=== PATIENT | male | born 1940 | race Caucasian/White ===

== ENCOUNTER 2017-11-09 10:31 | Emergency (ER) | payer MEDICARE, OTHER, SELFPAY ==
[2017-11-09 10:49] VITALS: BP 141/85; PULSE 69; RESP 24; O2SAT 98; BMI 26.5
--- NOTE | 2017-11-09 11:16 | ED.DIZZY ---
HPI - Dizziness General Chief Complaint: Dizziness Stated Complaint: Dizzy after taking new antiseizure med Time Seen by Provider: 11/09/17 10:43 Source: patient Mode of arrival: wheelchair Limitations: no limitations History of Present Illness HPI Narrative: Patient is a 77-year-old male who is approximately 3 days in to taking Topamax prescribed by his neurologist for concerns of seizures. Patient states that back in June there was a event after a surgery. Patient states that the that time there was concern for a stroke versus a seizure. He states that he has been ruled out for stroke and now the concern was that he had a seizure. He states that he has had 2 EEG since then that had abnormal waves he has been on several different seizure medicines and could not tolerate any of those medications. He did start Topamax 2 times a day a couple days ago. He states that he was at his normal state health this morning took his Topamax. He states that shortly afterwards he became lightheaded. Denied any vertigo. Denies any other symptoms. He states that he became very unsteady on his feet. He was at [facility] at the time. States that he was sitting at the time of the onset. Had to be helped outside because of the unsteadiness. At the time of my evaluation he feels like he has improved somewhat but was not back to baseline. Once again denies any other symptoms. 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 Related Data Home Medications Medication Instructions Recorded Confirmed topiramate 11/09/17 Allergies Allergy/AdvReac Type Severity Reaction Status Date / Time indomethacin [INDOMETHACIN] Allergy Severe COMA Unverified 11/09/17 12:00 diazepam [DIAZEPAM] Allergy Unknown HEART Unverified 08/20/17 12:08 FLUTTER Review of Systems Constitutional Denies chills, Denies fatigue, Denies fever(s), Denies headache(s), Denies lethargy, Denies malaise and Denies weakness Eyes Denies blurry vision, Denies diplopia, Denies irritation and Denies loss of vision ENT Ears, Nose, Mouth, and Throat: Denies dental pain, Denies vertigo, Reports dizziness, Denies facial pain, Denies headache(s), Denies lip swelling, Reports disequilibrium, Denies sinus pain, Denies sinus pressure, Denies sore throat and Denies throat swelling Cardiovascular Denies chest pain, Denies diaphoresis, Denies syncope, Denies rapid heart rate, Denies edema, Reports lightheadedness, Denies palpitations and Denies dyspnea Respiratory Denies cough, Denies dyspnea and Denies wheezing Gastrointestinal Gastrointestinal: Denies abdominal pain, Denies constipation, Denies diarrhea, Denies nausea and Denies vomiting Genitourinary Denies dysuria Musculoskeletal Reports abnormal gait, Denies myalgias, Denies arthralgias, Denies numbness and Denies tingling Integumentary/Breasts Denies lesions, Denies rash and Denies wounds Neurologic Denies abnormal movements, Denies abnormal speech, Reports abnormal gait, Denies behavioral changes, Denies burning sensations, Denies confusion, Denies vertigo, Reports dizziness, Denies syncope, Denies headache(s), Denies lack of coordination, Denies loss of vision, Denies memory loss, Denies numbness, Denies convulsions, Denies seizure-like activity, Denies sensory deficit, Denies tingling, Denies paresthesias, Reports disequilibrium and Denies weakness Psychiatric Denies behavioral changes, Denies confusion and Denies memory loss Endocrine Denies fatigue, Denies flushing and Denies palpitations Hematologic/Lymphatic Denies easy bleeding and Denies easy bruising Allergic/Immunologic Denies urticaria, Denies lip swelling, Denies throat swelling and Denies wheezing [facility] Social History Smoking Status: Never smoker Exam Initial Vital Signs Initial Vital Signs: Vital Signs Pulse Rate 69 11/09/17 10:49 Respiratory Rate 24 11/09/17 10:49 Blood Pressure 141/85 H 11/09/17 10:49 Pulse Oximetry 98 11/09/17 10:49 Const General: cooperative, healthy appearing, comfortable, well developed, well groomed and No acute distress Orientation: alert, awake and oriented x3 HENMT Head: normal to inspection, normocephalic and atraumatic Ears: hearing grossly normal bilaterally Nose: external nose normal Face and sinus: face asymmetric ( Slight droop to the left side of his mouth that resolves when he smiles) Mouth: oral mucosae normal Throat: uvula midline Eyes General: appearance normal, both eyes and all related structures Pupils: PERRL EOM: EOM intact bilaterally Chest Chest: normal inspection of the chest Resp Effort & Inspection: normal respiratory effort and able to speak in complete sentences Auscultation: clear to auscultation bilaterally Cardio Rate: regular rate Rhythm: regular rhythm Pulses: radial pulses present GI Inspection: normal to inspection, no edema and non-distended Palpation: soft, No firm and No tender Back/Spine/Pelvis Back: No CVA tenderness Skin General: no rashes or lesions noted, No jaundice and No petechiae Lesions: no lesions Rashes: no rashes Wounds: no wounds Neuro General: alert, awake, oriented x3 and CN's II-XI intact bilaterally Cranial Nerves: No CN's II-XI intact bilaterally ( patient with a slight droop of the left side of his mouth that is overcome was smiling otherwise cranial nerves intact), PERRL, EOM intact bilaterally, facial strength normal, tongue midline and hearing normal Cognition: normal cognition Speech: speech normal Gait: other ( patient able to stand without problems able to ambulate however does need some assistance because he feels unsteady.) Motor: muscle tone normal throughout Sensory Exam: no sensory deficits noted Extrem General: normal to inspection, capillary refill normal and normal exam except as noted Course Orders Ordered: ED Orders 11/09/17 11:19 CT head/brain wo con Stat 11/09/17 11:31 Complete Blood Count AUTO DIFF Stat Comprehensive Metabolic Panel Stat Partial Thromboplastin Time Stat Prothrombin Time INR Stat Vital Signs - 8 hr 11/09/17 10:49 11/09/17 11:26 11/09/17 12:01 Pulse Rate 69 82 72 Respiratory Rate 24 14 17 Blood Pressure 141/85 H Blood Pressure [Left Arm] 147/93 H 125/76 H Pulse Oximetry 98 96 96 11/09/17 12:35 Pulse Rate 76 Respiratory Rate 16 Blood Pressure Blood Pressure [Left Arm] 137/72 H Pulse Oximetry 97 MDM - Dizziness Lab Data Attestation: I reviewed the patient's lab results. Result diagrams: 11/09/17 11:31 11/09/17 11:31 Lab Results 11/09/17 11/09/17 11/09/17 Range/Units 11:31 11:31 11:31 WBC 4.8 (4.5-11.0) X10^3/uL RBC 5.37 (4.5-5.9) X10^6/uL Hgb 16.0 (13.5-17.5) g/dL Hct 47.6 (41-53) % MCV 88.6 (80-100) fL MCH 29.7 (26-34) PG MCHC 33.5 (30-36) % RDW 14.8 (11.6-14.8) % Plt Count 209 (150-400) X10^3/uL Neut % (Auto) 59.3 (50-75) % Lymph % (Auto) 21.3 L (25-40) % [place] % (Auto) 12.8 (3-14) % Eos % (Auto) 5.1 H (2-4) % Baso % (Auto) 1.5 (0-2) % Neut # (Auto) 2900 L (2387-0524) /uL PT 11.8 (10.1-12.7) SECONDS INR 1.1 (0.9-1.3) APTT 32 (26.4-36.2) SECONDS Sodium 144 (137-145) mmol/L Potassium 4.5 (3.4-5.1) mmol/L Chloride 105 (98-107) mmol/L Carbon Dioxide 27 (22-32) mmol/L BUN 21 H (9-20) mg/dL Creatinine 1.00 (0.66-1.25) mg/dL Estimated GFR > 60.0 (>60) mL/min BUN/Creatinine Ratio 21.0 (6-22) Glucose 90 (80-110) mg/dL Calcium 9.3 (8.4-10.2) mg/dL Total Bilirubin 0.8 (0.2-1.3) mg/dL AST 19 (17-59) IU/L ALT 24 (21-72) IU/L Alkaline Phosphatase 46 (38-126) U/L Total Protein 7.2 (6.3-8.2) g/dL Albumin 4.3 (3.5-5.0) g/dL Globulin 2.9 (1.7-4.1) g/dL Albumin/Globulin Ratio 1.5 (1.0-2.8) Imaging Data CT scan - head: Radiologist's impression: PROCEDURE: CT HEAD/BRAIN WO CON INDICATIONS: lightheadedness not on anticoagulation history of CVA TECHNIQUE: Noncontrast 4.5 mm thick angled axial sections acquired from the foramen magnum to the vertex, with coronal and sagittal reformats. For radiation dose reduction, the following was used: automated exposure control, adjustment of mA and/or kV according to patient size. COMPARISON: [facility], MR, BRAIN WITHOUT CONTRAST, 06/22/2007, 7:48. [facility], CT, HEAD WITHOUT CONTRAST, 03/10/2007, 9:09. [facility], MR, BRAIN W&WO CONTRAST, 07/29/2017, 16:30. FINDINGS: Image quality: Excellent. CSF spaces: Basal cisterns are patent. No extra-axial fluid collections. The ventricles are symmetric in size and shape. Brain: No intracranial bleeds or masses. There is cerebral volume loss for age, with resultant ventricular and sulcal prominence. There are periventricular and deep white matter chronic small vessel ischemic changes. There is intracranial internal carotid artery atherosclerosis. Skull and face: Calvarium and visualized facial bones appear intact, without suspicious lesions. Sinuses: Large mucus retention cyst noted in the left maxillary sinus. The mastoids are clear. IMPRESSION: No acute intracranial disease process. Dictated by: Thais Ca MD, PhD on 11/09/2017 at 12:06 ECG Data Attestation: I personally reviewed and interpreted this ECG as follows: Prior ECG tracings: not available for review Interpretation: Ectopic atrial rhythm ventricular rate is 68 normal axis normal QRS normal QTC No ST T wave changes MDM Narrative Medical decision making narrative: Patient's labs are unremarkable. Head CT is unremarkable. Has no objective neurologic findings. Patient did have some problems walking on his own secondary to feeling unsteady. Topamax does have the side effect of making somewhat unsteady. I do feel that this could very well be the cause of his symptoms. Also considered CVA. He does have a history of CVA in the past however in the setting of being on Topamax which can cause his symptoms, no objective neurologic findings will hold on further workup for now. I did have discussion with him and his was at bedside regarding this. The plan will be for him to go home. He does have a walker at home that he could use. He is going to stop the Topamax. He does understand that stopping this could cause him to potentially have seizures. He will call his neurologist on Friday to discuss the side effects he was having. He was given return precautions. If he does return to the emergency department would do a further workup for TIA/CVA. Patient expressed understanding and agreement with his plan. Discharge Plan Departure Patient Disposition: Home, Self-Care Clinical Impression: Lightheadedness Discharge Date/Time: 11/09/17 13:10 Interventions: ED Discharge Assessment Last Done: 11/09/17 13:01 Instructions: How to Prevent Falls Activity Restrictions/Additional Instructions: recommend that you stop the Topiramate and contact your neurologist on Friday to discuss further medication adjustments. If your symptoms worsen or you developed new symptoms you do need to return to the emergency department for further evaluation. Also recommend you contact her primary care doctor for a follow-up. Prescriptions: No Action topiramate 50 mg tablet RF: 0
--- NOTE | 2017-11-09 11:19 | DI.CT.S_ITS ---
PROCEDURE: CT HEAD/BRAIN WO CON INDICATIONS: lightheadedness not on anticoagulation history of CVA TECHNIQUE: Noncontrast 4.5 mm thick angled axial sections acquired from the foramen magnum to the vertex, with coronal and sagittal reformats. For radiation dose reduction, the following was used: automated exposure control, adjustment of mA and/or kV according to patient size. COMPARISON: [facility], MR, BRAIN WITHOUT CONTRAST, 06/22/2007, 7:48. [facility], CT, HEAD WITHOUT CONTRAST, 03/10/2007, 9:09. [facility], MR, BRAIN W&WO CONTRAST, 07/29/2017, 16:30. FINDINGS: Image quality: Excellent. CSF spaces: Basal cisterns are patent. No extra-axial fluid collections. The ventricles are symmetric in size and shape. Brain: No intracranial bleeds or masses. There is cerebral volume loss for age, with resultant ventricular and sulcal prominence. There are periventricular and deep white matter chronic small vessel ischemic changes. There is intracranial internal carotid artery atherosclerosis. Skull and face: Calvarium and visualized facial bones appear intact, without suspicious lesions. Sinuses: Large mucus retention cyst noted in the left maxillary sinus. The mastoids are clear. IMPRESSION: No acute intracranial disease process. Dictated by: Thais Ca MD, PhD on 11/09/2017 at 12:06 Approved by: Thais Ca MD, PhD on 11/09/2017 at 12:09
[2017-11-09 11:26] VITALS: BP 147/93; PULSE 82; RESP 14; O2SAT 96
[2017-11-09 11:59] LABS: Add Manual Diff / Slide Review NO; Basophils Percent Auto 1.5 % (0-2); Eosinophils Percent Auto 5.1 % (2-4); Hematocrit 47.6 % (41-53); Lymphocytes Percent Auto 21.3 % (25-40); Mean Corpuscular HGB Conc 33.5 % (30-36); Mean Corpuscular Hemoglobin 29.7 PG (26-34); Mean Corpuscular Volume 88.6 fL (80-100); Monocytes Percent Auto 12.8 % (3-14); Neutrophils Absolute Auto 2900 /uL (3000-5900); Neutrophils Percent Auto 59.3 % (50-75); Platelet Count 209 X10^3/uL (150-400); Red Blood Cell Count 5.37 X10^6/uL (4.5-5.9); Red Cell Distribution Width 14.8 % (11.6-14.8); White Blood Cell Count 4.8 X10^3/uL (4.5-11.0)
[2017-11-09 12:01] VITALS: BP 125/76; PULSE 72; RESP 17; O2SAT 96
[2017-11-09 12:02] LABS: INR 1.1 (0.9-1.3); Prothrombin Time 11.8 SECONDS (10.1-12.7)
[2017-11-09 12:05] LABS: PTT Partial Thromboplastin Tim 32 SECONDS (26.4-36.2)
[2017-11-09 12:07] LABS: Alanine Aminotransferase 24 IU/L (21-72); Albumin 4.3 g/dL (3.5-5.0); Albumin Globulin Ratio 1.5 (1.0-2.8); Alkaline Phosphatase 46 U/L (38-126); Aspartate Aminotransferase 19 IU/L (17-59); Bilirubin Total 0.8 mg/dL (0.2-1.3); Blood Urea Nitrogen 21 mg/dL (9-20); Calcium 9.3 mg/dL (8.4-10.2); Carbon Dioxide 27 mmol/L (22-32); Chloride 105 mmol/L (98-107); Estimated Glomerular Filt Rate > 60.0 mL/min (>60); Globulin 2.9 g/dL (1.7-4.1); Glucose 90 mg/dL (80-110); HEMOLYSIS 18 (0-50); Potassium 4.5 mmol/L (3.4-5.1); Sodium 144 mmol/L (137-145); Total Protein 7.2 g/dL (6.3-8.2)
[2017-11-09 12:35] VITALS: BP 137/72; PULSE 76; RESP 16; O2SAT 97
== END 2017-11-09 13:10 | disposition home or self-care (01) ==
PROVIDERS: Emergency Provider Emergency Medicine; Family Provider Internal Medicine; PCP Internal Medicine
DX: R42 Dizziness and giddiness (principal)
CPT/HCPCS: 36591; 70450; 80053; 85025; 85610; 85730; 93005; 99283; 99285

== ENCOUNTER → 2018-01-05 15:23 | Outpatient (CLI) | payer MEDICARE, OTHER, SELFPAY | PROVIDERS: Family Provider Internal Medicine; PCP Internal Medicine; Visit Provider Physician Assistant | DX: L03.031 Cellulitis of right toe (principal) | CPT/HCPCS: 87070; 87075; 87077; 87147; 87186; 87205 ==

== ENCOUNTER 2018-03-30 09:38 | Emergency (ER) | payer MEDICARE, OTHER, SELFPAY ==
[2018-03-30 09:54] VITALS: BP 151/80; PULSE 102; RESP 16; TEMP 36.2; O2SAT 98; BMI 27.9
[2018-03-30] MEDS: TRIMETH/SULFA 160/800 (DS) TABLET 1 TAB PO (12:30)
--- NOTE | 2018-03-30 12:30 | PC.NURSE ---
pt has injured nail but accidentally cutting skin when cutting the nail, then stubbed it. pt has been doing soaks 2-3 times a day. taken one coarse of antibiotics when it first happened. but getting worse again, last week dr mobley told him he may have to do more antibiotics.
--- NOTE | 2018-03-30 12:34 | ED_ITS ---
HPI - Extremity Injury (Lower) General Chief Complaint: Extremity Injury, Lower Stated Complaint: INFECTED RIGHT BIG TOE Time Seen by Provider: 03/30/18 11:03 Source: patient and family Mode of arrival: ambulatory Limitations: no limitations History of Present Illness HPI Narrative: Patient complains of redness and pain and swelling of his right great toe for the last 6 weeks, on and off. Patient states that he has seen his doctor for this previously and has had to have an I and D for paronychia him. Patient has curve toenails, and has recurrent issues with inflammation of his great toes. He states that he was seen by his doctor for this couple of weeks ago and told if things get worse, he may need to have an antibiotic. Patient has noticed progressive redness and swelling pain toe no drainage, except small amount of serosanguineous drainage the toenail. He states he has been doing salt water soaks. Patient states he is here because he can't get in to see his primary doctor today. Patient has never seen a finish inspector for this problem. He denies any trauma. He does not feel ill in any other way. Related Data Home Medications Medication Instructions Recorded Confirmed topiramate 11/09/17 01/21/18 carvedilol 25 mg PO BID 03/30/18 03/30/18 minoxidil 10 mg PO DAILY 03/30/18 03/30/18 rosuvastatin 20 mg PO DAILY 03/30/18 03/30/18 Previous Rx's Medication Instructions Recorded mupirocin 2 % topical ointment 1 applictn TOP TID #30 gram 01/21/18 sulfamethoxazole-trimethoprim 1 tab PO BID #14 tab 03/30/18 [Bactrim DS] Allergies Allergy/AdvReac Type Severity Reaction Status Date / Time indomethacin [INDOMETHACIN] Allergy Severe COMA Verified 03/30/18 09:54 diazepam [DIAZEPAM] Allergy Unknown HEART Verified 03/30/18 09:54 FLUTTER Review of Systems Review of Systems All systems reviewed & are unremarkable except as noted in HPI and below Constitutional Denies chills, Denies fever(s), Denies lethargy and Denies weakness Eyes Denies change in vision, Denies eye discharge, Denies irritation and Denies loss of vision ENT Ears, Nose, Mouth, and Throat: Denies change in voice, Denies neck pain and Denies sore throat Cardiovascular Denies chest pain, Denies irregular heart rhythm, Denies lightheadedness, Denies palpitations, Denies dyspnea, Denies dyspnea on exertion and Denies orthopnea Respiratory Denies cough, Denies dyspnea, Denies dyspnea on exertion and Denies wheezing Gastrointestinal Gastrointestinal: Denies abdominal pain, Denies change in bowel habits, Denies diarrhea, Denies nausea and Denies vomiting Genitourinary Denies hematuria, Denies flank pain, Denies urinary incontinence and Denies urinary urgency Musculoskeletal Denies neck pain Integumentary/Breasts Denies pruritus, Denies erythema, Denies rash and Denies wounds Neurologic Denies confusion, Denies loss of vision and Denies weakness Psychiatric Denies anxiety, Denies confusion, Denies depression, Denies homicidal ideation and Denies suicidal ideation Endocrine Denies palpitations Hematologic/Lymphatic Denies easy bruising Allergic/Immunologic Denies wheezing [facility] Medical History Paronychia (Acute) Cellulitis of great toe (Acute) Snoring (Chronic) Insomnia, persistent (Chronic) Obstructive sleep apnea of adult (Chronic) Surgical History No pertinent past surgical history (Acute) Social History Smoking Status: Never smoker Exam Initial Vital Signs Initial Vital Signs: Vital Signs Temperature 97.2 F L 03/30/18 09:54 Pulse Rate 102 H 03/30/18 09:54 Respiratory Rate 16 03/30/18 09:54 Blood Pressure 151/80 H 03/30/18 09:54 Pulse Oximetry 98 03/30/18 09:54 [facility] Head: normocephalic and atraumatic Ears: external ears normal and TM's normal bilaterally Nose: external nose normal and No nasal discharge Face and sinus: sinuses nontender, face symmetric, no sinus tenderness and No dry mucous membranes Mouth: oral mucosae normal and moist mucous membranes Teeth and gingiva: dentition normal Throat: tonsils normal and uvula midline Resp Effort & Inspection: normal respiratory effort, able to speak in complete sentences, no respiratory distress and no use of accessory muscles Cardio Pulses: dorsalis pedis present Skin Other: patient has erythema and mild edema of the distal half of his right great toe. A mild amount of dried, serosanguineous drainage is noted along the sides of the nail. There is no fluctuance. No induration. Toe is uniformly edematous and erythematous. No foreign body. No compromise of the nail. Patient has a markedly curved great toenail. Extrem Other: See description of toe above. Patient has full range of motion of his right great toe. Course Course Narrative: I discussed with the patient that at this time, I do not find evidence of apparent aching needs draining. At this point, I will put him on Bactrim, and have him follow up with Podiatry. The patient should continue his salt water soaks. We have discussed home management of the symptoms as well as the usual indications for return. Orders Ordered: Discontinued Medications Trimethoprim/Sulfamethoxazole (Bactrim Ds) 1 tab PO NOW ONE Stop: 03/30/18 12:27 Vital Signs - 8 hr 03/30/18 09:54 Temperature 97.2 F L Pulse Rate 102 H Respiratory Rate 16 Blood Pressure 151/80 H Pulse Oximetry 98 MDM - Extremity Injury (Lower) Medical Records Attestation: I reviewed the patient's medical records. Discharge Plan Departure Patient Disposition: Home Clinical Impression: Cellulitis of great toe Instructions: DI for Cellulitis -- Adult Prescriptions: New sulfamethoxazole-trimethoprim [Bactrim DS] 800-160 mg tablet 1 tab PO BID Qty: 14 RF: 0 No Action mupirocin 2 % ointment 1 applictn TOP TID Qty: 30 RF: 0 topiramate 50 mg tablet RF: 0 carvedilol 25 mg tablet 25 mg PO BID RF: 0 minoxidil 10 mg tablet 10 mg PO DAILY RF: 0 rosuvastatin 20 mg tablet 20 mg PO DAILY RF: 0 Referrals: Gerson Warren DPM [Non-Staff] - Rivera Kelly DPM [Non-Staff] - Coral Garsia DPM [Physician] - Valente Puente MD [Primary Care Provider] -
[2018-03-30 12:36] VITALS: BP 128/73; PULSE 67; RESP 14; O2SAT 95
== END 2018-03-30 12:39 | disposition home or self-care (01) ==
PROVIDERS: Emergency Provider Emergency Medicine; Family Provider Internal Medicine; PCP Internal Medicine
DX: L03.031 Cellulitis of right toe (principal)
CPT/HCPCS: 99282; 99283

== ENCOUNTER → 2020-01-13 19:46 | Outpatient (ROUT) | payer MEDICARE, OTHER, SELFPAY ==
[2020-01-13 20:22] LABS: Aspartate Aminotransferase 29 IU/L (17-59); BUN Creatinine Ratio 22.9 (6-22); Blood Urea Nitrogen 22 mg/dL (9-20); Calcium 9.2 mg/dL (8.4-10.2); Carbon Dioxide 28 mmol/L (22-32); Chloride 106 mmol/L (98-107); Cholesterol 109 mg/dL (140-199); Estimated Glomerular Filt Rate > 60.0 mL/min (>60); Glucose 102 mg/dL (80-110); HDL Cholesterol 39 mg/dL (40-60); HEMOLYSIS < 15 (0-50); LDL Cholesterol Calculated 56 mg/dL (<100); Potassium 4.5 mmol/L (3.4-5.1); Sodium 140 mmol/L (137-145); Triglycerides 71 mg/dL (35-150)
[2020-01-13 20:24] LABS: Hemoglobin A1C% w Est Avg Glu 5.7 % (4.0-6.0)
[2020-01-13 21:11] LABS: Vitamin B12 393 pg/mL (239-931)
== END ==
PROVIDERS: Family Provider Internal Medicine; PCP Internal Medicine; Visit Provider Internal Medicine
DX: I10 Essential (primary) hypertension (principal); E78.2 Mixed hyperlipidemia; R73.01 Impaired fasting glucose; E53.8 Deficiency of other specified B group vitamins
CPT/HCPCS: 80048; 80061; 82607; 83036; 84450

== ENCOUNTER → 2020-02-10 15:18 | Outpatient (CLI) | payer MEDICARE, OTHER, SELFPAY ==
--- NOTE | 2020-02-10 | DI.US.S_ITS ---
PROCEDURE: US PERIPH VENOUS LOW EXTREM RT INDICATIONS: SOFT TISSUE DISORDERS TECHNIQUE: Real-time imaging, as well as color and pulse Doppler interrogation, were performed of the lower extremity deep veins from the inguinal ligament to the popliteal fossa. COMPARISON: None. FINDINGS: The common femoral, femoral and popliteal veins are normally compressible, and free of intraluminal thrombus. Color and pulse Doppler demonstrate normal phasic intraluminal flow. There is normal augmentation response to distal compression maneuver. IMPRESSION: No deep venous thrombosis identified within the right lower extremity. Dictated by: Jeovanny Mariee [facility] Interpreted: Daniel Valdivia MD on 02/10/2020 at 16:03 Approved by: Daniel Valdivia M.D. on 02/10/2020 at 17:21
== END ==
PROVIDERS: Family Provider Internal Medicine; PCP Internal Medicine; Referring Provider Student in an Organized Health Care Education/Training Program; Visit Provider Student in an Organized Health Care Education/Training Program
DX: M79.89 Other specified soft tissue disorders (principal)
CPT/HCPCS: 93971

== ENCOUNTER 2020-08-31 19:04 | Emergency (ER) | payer MEDICARE, OTHER, SELFPAY ==
[2020-08-31 19:11] VITALS: BP 171/77; PULSE 70; RESP 20; O2SAT 96; BMI 27.1
--- NOTE | 2020-08-31 20:09 | ED_ITS ---
HPI - Back Pain/Injury General Chief Complaint: Back Pain/Injury Stated Complaint: Back Spasms Time Seen by Provider: 08/31/20 19:50 Source: patient and EMS Mode of arrival: EMS Limitations: no limitations History of Present Illness HPI Narrative: Patient is a 80-year-old male. He states he has had ?sciatica? in the past but states that it normally does not bother him all that much. Two days ago he was working out in the [email or web address] doing some [email or web address] work and shortly after started having what he describes as muscle spasms in his right lower back. He states this evening he sat down on the couch and then could not get up because of the discomfort in his back. He has been taking Tylenol and ibuprofen. Denies any urinary symptoms. No fevers. No specific trauma. No changes in bowel habits. Related Data Home Medications Medication Instructions Recorded Confirmed topiramate 11/09/17 02/24/20 carvedilol 25 mg PO BID 03/30/18 02/24/20 minoxidil 10 mg PO DAILY 03/30/18 02/24/20 rosuvastatin 20 mg PO DAILY 03/30/18 02/24/[address] [address] #1 ea 07/22/18 02/24/20 30 Previous Rx's Medication Instructions Recorded mupirocin 2 % topical ointment 1 applictn TOP TID #30 gram 01/21/18 sulfamethoxazole-trimethoprim 1 tab PO BID #14 tab 03/30/18 [Bactrim DS] cyclobenzaprine 10 mg PO TID PRN #14 tab 08/31/20 Allergies Allergy/AdvReac Type Severity Reaction Status Date / Time indomethacin [INDOMETHACIN] Allergy Severe COMA Verified 07/22/18 08:41 diazepam [DIAZEPAM] Allergy Unknown HEART Verified 07/22/18 08:41 FLUTTER Review of Systems Constitutional Constitutional: Denies fever(s) and Reports weakness Cardiovascular Cardiovascular: Denies chest pain and Denies dyspnea Respiratory Respiratory: Denies dyspnea Gastrointestinal Gastrointestinal: Denies abdominal pain Genitourinary Genitourinary: Denies dysuria, Denies urinary hesitancy, Denies urinary incontinence and Denies urinary urgency Genitourinary: Denies dysuria, Denies urinary incontinence, Denies urinary hesitancy and Denies urinary urgency Musculoskeletal Musculoskeletal: Reports back pain Integumentary/Breasts Skin/Breast: Denies rash Neurologic Neurologic: Reports weakness Hematologic/Lymphatic On Anticoagulants: No Allergic/Immunologic Allergic/Immunologic: Denies urticaria Patient History Medical History Cellulitis of great toe Insomnia, persistent Obstructive sleep apnea of adult Paronychia Snoring Surgical History No pertinent past surgical history Social History marital status: details: noemí Hoffmann, lives in [place] household members: spouse lives independently: Yes caregiver/support person: No housing: house Smoking Status: Never smoker Smoking Status: Never smoker alcohol intake frequency: a few times a week Substance Use Type: does not use Exam Initial Vital Signs Initial Vital Signs: Vital Signs Pulse Rate 70 08/31/20 19:11 Respiratory Rate 20 08/31/20 19:11 Blood Pressure 171/77 H 08/31/20 19:11 Pulse Oximetry 96 08/31/20 19:11 Const General: cooperative Limitations: mental status not altered HENWY Head: normal to inspection and normocephalic Resp Effort & Inspection: normal respiratory effort Cardio Rate: regular rate GI Inspection: non-distended Palpation: soft Back/Spine/Pelvis Back: No CVA tenderness Thoracic/Lumbar Spine: No thoracic spinal tenderness and No lumbar spinal tenderness Skin Lesions: no lesions Rashes: no rashes Neuro General: patient alert, patient awake and patient oriented x3 Cognition: normal cognition Speech: speech normal Extrem General: normal to inspection, capillary refill normal and No edema Other: Tenderness to palpation right hamstring Psych Appearance: grossly normal and well kempt Course Orders Ordered: Discontinued Medications Hydromorphone HCl (Hydromorphone 1 Mg Inj) 1 mg IM NOW ONE Stop: 08/31/20 20:10 Last Admin: 08/31/20 20:16 Dose: 1 mg Documented by: FELICITA Vital Signs Vital signs: Vital Signs - 8 hr 08/31/20 21:50 Pulse Rate 58 L Respiratory Rate 17 Blood Pressure 164/83 H Pulse Oximetry 94 MDM - Back Pain/Injury MDM Narrative Medical decision making narrative: There has been no specific trauma to cause his symptoms. I feel we can hold on radiologic studies. He does not have any fevers. No saddle anesthesia. No urinary symptoms. No change in bowel habits. He reports that his symptoms are more of a muscle spasm in his right leg. I have low suspicion for cauda equina. Initially thought he was having hamstring strain however upon further re-evaluation this is most likely him just tensing up because of the discomfort he was having. He did report some improvement with medications given here in the emergency department. He felt that after these medications he will be discharged home and maintain his pain level with ibuprofen which he has taken in the past. I discussed ibuprofen with him. He will take it with food. We discussed dosages. He can also take Tylenol. He did not want any muscle relaxers nor stronger pain medication which I am okay with. He was given return precautions and follow-up instructions. He expressed understanding and agreement. Discharge Plan Departure Patient Disposition: Home Clinical Impression: Acute leg pain Instructions: DI for Muscle Strain, DI for Back Pain With Sciatica Activity Restrictions/Additional Instructions: Continue to stay as active as possible. You can use the ice as needed. You can take 600 mg of ibuprofen 3 times a day with food. Contact your primary provider for follow-up. Return to the emergency department for any new or worsening symptoms Prescriptions: New cyclobenzaprine 10 mg tablet 10 mg PO TID PRN (Reason: muscle spasm) Qty: 14 RF: 0 No Action mupirocin 2 % ointment 1 applictn TOP TID Qty: 30 RF: 0 topiramate 50 mg tablet RF: 0 carvedilol 25 mg tablet 25 mg PO BID RF: 0 minoxidil 10 mg tablet 10 mg PO DAILY RF: 0 rosuvastatin 20 mg tablet 20 mg PO DAILY RF: 0 sulfamethoxazole-trimethoprim [Bactrim DS] 800-160 mg tablet 1 tab PO BID Qty: 14 RF: 0 (DME) Respiron[employer] Dreamstation BIPAP ST 30 Qty: 1 RF: 0 Referrals: Valente Puente MD [Primary Care Provider] -
[2020-08-31] MEDS: HYDROMORPHONE 1 MG INJ IM (20:16)
[2020-08-31 21:50] VITALS: BP 164/83; PULSE 58; RESP 17; O2SAT 94
== END 2020-08-31 21:50 | disposition home or self-care (01) ==
PROVIDERS: Emergency Provider Emergency Medicine; Family Provider Internal Medicine; PCP Internal Medicine
DX: M79.604 Pain in right leg (principal)
CPT/HCPCS: 96372; 99283; J1170

== ENCOUNTER → 2021-06-05 11:36 | Outpatient (CLI) | payer MEDICARE, OTHER, SELFPAY ==
[2021-06-05 13:09] LABS: Iron 117 ug/dL (49-181)
[2021-06-05 13:28] LABS: Free T4, Direct Thyroxine 1.02 ng/dL (0.78-2.19)
[2021-06-05 13:41] LABS: Thyroid Stimulating Hormone 2.83 uIU/mL (0.47-4.68)
[2021-06-05 14:06] LABS: Folate 12.1 ng/mL (2.76-20.0); Vitamin B12 757 pg/mL (239-931)
[2021-06-06 18:17] LABS: SS A Ro Sjogrens Antibody < 0.2 AI (0.0-0.9); SS B La Sjogrens Antibody < 0.2 AI (0.0-0.9)
[2021-06-06 21:03] LABS: Zinc 111 ug/dL (44-115)
== END ==
PROVIDERS: Family Provider Internal Medicine; PCP Internal Medicine; Referring Provider Dentist; Visit Provider Dentist
DX: K14.6 Glossodynia (principal); R68.2 Dry mouth, unspecified
CPT/HCPCS: 36415; 82607; 82746; 83540; 84439; 84443; 84630; 86235

== ENCOUNTER → 2022-02-14 07:56 | Outpatient (CLI) | payer MEDICARE, OTHER, SELFPAY ==
[2022-02-14 09:26] LABS: Hematocrit 45.4 % (41-53); Mean Corpuscular Volume 91.1 fL (80-100); Platelet Count 184 X10^3/uL (150-400); Red Blood Cell Count 4.99 X10^6/uL (4.5-5.9); Red Cell Distribution Width 15.5 % (11.6-14.8)
[2022-02-14 09:28] LABS: Hemoglobin A1C% w Est Avg Glu 5.2 % (4.0-6.0)
[2022-02-14 09:35] LABS: Alanine Aminotransferase 16 IU/L (<50); Albumin 3.8 g/dL (3.5-5.0); Albumin Globulin Ratio 1.3 (1.0-2.8); Alkaline Phosphatase 42 U/L (38-126); Aspartate Aminotransferase 22 IU/L (17-59); Bilirubin Total 1.1 mg/dL (0.2-1.3); Blood Urea Nitrogen 24 mg/dL (9-20); Calcium 8.8 mg/dL (8.4-10.2); Carbon Dioxide 30 mmol/L (22-32); Chloride 103 mmol/L (98-107); Cholesterol 112 mg/dL (140-199); Estimated Glomerular Filt Rate > 60 mL/min (>60); Globulin 2.9 g/dL (1.7-4.1); Glucose 91 mg/dL (80-110); HDL Cholesterol 44 mg/dL (40-60); HEMOLYSIS 21 (0-50); LDL Cholesterol Calculated 57 mg/dL (<100); Potassium 4.3 mmol/L (3.4-5.1); Sodium 140 mmol/L (137-145); Total Protein 6.7 g/dL (6.3-8.2); Triglycerides 57 mg/dL (35-150)
[2022-02-14 10:15] LABS: TSH w/ Reflex to FT4 5.61 uIU/mL (0.47-4.68)
[2022-02-14 10:40] LABS: Free T4, Direct Thyroxine 1.14 ng/dL (0.78-2.19)
== END ==
PROVIDERS: Family Provider Internal Medicine; PCP Internal Medicine; Referring Provider Internal Medicine; Visit Provider Internal Medicine
DX: E78.2 Mixed hyperlipidemia (principal); R73.01 Impaired fasting glucose; I10 Essential (primary) hypertension; I67.9 Cerebrovascular disease, unspecified
CPT/HCPCS: 36415; 80053; 80061; 83036; 84439; 84443; 85027

== ENCOUNTER 2022-12-12 13:05 | Inpatient (IN) | payer MEDICARE, OTHER, SELFPAY ==
[2022-12-12] VITALS (13 sets, daily range): BP systolic 129–165; BP diastolic 63–83; PULSE 57–69; RESP 14–24; TEMP 36.2–36.8; O2SAT 95–98; BMI 23.7
--- NOTE | 2022-12-12 | DI.MRI.S_ITS ---
PROCEDURE: MR HEAD/BRAIN WO CON INDICATIONS: L hand weakness TECHNIQUE: Non-contrast axial T1 spin echo, axial T2 fast spin echo, sagittal and axial FLAIR, coronal T2 fast spin echo, axial gradient echo, axial diffusion and ADC through the brain. COMPARISON: [facility], CT, CT ANGIO HEAD AND NECK, 12/12/2022, 13:29. [facility], CT, CT HEAD/BRAIN WO CON, 12/12/2022, 13:20. [facility], CT, CT HEAD/BRAIN WO CON, 11/09/2017, 11:29. [facility], MR, BRAIN WITHOUT CONTRAST, 06/22/2007, 7:48. FINDINGS: Image quality: Excellent. CSF spaces: Ventricles appear symmetric in size and shape. Basal cisterns are patent. 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 Brain: There is a focal infarction seen involving the right anterior thalamus, with increased diffusion-weighted signal and decreased T1 weighted signal. Mildly increased FLAIR signal can be seen at this site. No intracranial bleeds or mass effects. There is cerebral volume loss for age. There are periventricular and deep white matter chronic small vessel ischemic changes. Brainstem appears normal. No chronic ischemic insults. Normal intravascular flow voids are present. Skull and face: Calvarial bone marrow is normal in signal. Orbits are normal. Note is made of bilateral lens replacements. Sinuses: There is focal mucosal thickening involving the left maxillary sinus, which is near completely opacified. Milder mucosal thickening can be seen elsewhere within the paranasal sinuses. 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 Additional findings: Focal left maxillary sinus disease Dictated by: Klaus Nichols M.D. on 12/12/2022 at 18:30 Approved by: Klaus Nicohls M.D. on 12/12/2022 at 18:33
--- NOTE | 2022-12-12 13:12 | DI.CT.S_ITS ---
PROCEDURE: CT HEAD/BRAIN WO CON INDICATIONS: Facial droop TECHNIQUE: Noncontrast 4.5 mm thick angled axial sections acquired from the foramen magnum to the vertex, with coronal and sagittal reformats. For radiation dose reduction, the following was used: automated exposure control, adjustment of mA and/or kV according to patient size. COMPARISON: [facility], MR, BRAIN W&WO CONTRAST, 07/29/2017, 16:30. [facility], CT, CT HEAD/BRAIN WO CON, 11/09/2017, 11:29. FINDINGS: Image quality: Excellent. CSF spaces: Basal cisterns are patent. No extra-axial fluid collections. The ventricles are symmetric in size and shape. Brain: No intracranial bleeds or masses. There is cerebral volume loss for age, with resultant ventricular and sulcal prominence. There are periventricular and deep white matter chronic small vessel ischemic changes. There is intracranial internal carotid artery atherosclerosis. In this patient with a shell droop, scrutiny is given to the courses of the facial nerves, including within the visualized parotid glands. To the limits of this standard protocol noncontrast head CT, no abnormalities are seen along these regions. Skull and face: Calvarium and visualized facial bones appear intact, without suspicious lesions. Sinuses: Moderate mucosal thickening is partially seen within the left maxillary sinus. The paranasal sinuses are otherwise unremarkable. No abnormal fluid is seen within the mastoid air cells. IMPRESSION: No acute intracranial process is seen. If there is strong clinical suspicion for an acute stroke, please consider a brain MRI for further evaluation, as it is more sensitive (assuming that there is no contraindication to MRI). Focal left maxillary sinus again seen. Dictated by: Klaus Nichols M.D. on 12/12/2022 at 12:38 Approved by: Klaus Nichols M.D. on 12/12/2022 at 12:40
--- NOTE | 2022-12-12 13:21 | DI.CT.S_ITS ---
PROCEDURE: CT ANGIO HEAD AND NECK INDICATIONS: L sided facial droop TECHNIQUE: After the administration of intravenous contrast, 1 mm thick sections acquired from the aortic arch through the [place]. 3-dimensional txktwvo-tcgmhzotc-zhbhkngoso (MIP) and/or volume rendering reformats were acquired of the central intracranial vasculature and neck separately. For radiation dose reduction, the following was used: automated exposure control, adjustment of mA and/or kV according to patient size. COMPARISON: [facility], MR, ANGIOGRAM NECK WITH CONTRAST, 06/22/2007, 8:06. [facility], MR, BRAIN W&WO CONTRAST, 07/29/2017, 16:30. [facility], CT, CT HEAD/BRAIN WO CON, 11/09/2017, 11:29. [facility], CT, CT HEAD/BRAIN WO CON, 12/12/2022, 13:20. FINDINGS: Image quality: Diagnostic. BRAIN: CSF spaces: Ventricles are normal in size and shape. Basal cisterns are patent. No extra-axial fluid collections. Brain: No midline shift. No intracranial bleeds or masses. Muro-white matter interface appears intact. Skull and face: In this patient with this given history, scrutiny is given to the course of the left facial nerve, including within the parotid gland. The limits of this standard protocol CT study, no abnormality of the left facial nerve is detected. Calvarium and facial bones appear intact, without suspicious lesions. Orbits appear normal. Sinuses: Sinuses and mastoids are clear. HEAD CT ANGIOGRAPHY: Anterior circulation: Intracranial internal carotid arteries demonstrate generalized atherosclerotic irregularity, with up to 50% narrowing on each side. The flow within the paired anterior cerebral arteries is normal and symmetric. The flow within the middle cerebral arteries is normal and symmetric. The anterior communicating artery is seen. No aneurysms are seen. Posterior circulation: Visualized portions of the vertebral arteries demonstrate normal caliber, and join to form a normal appearing basilar artery. Asymmetric flow is seen within the posterior cerebral arteries, which is greatly reduced on the right beginning at the level of the P2 segment. No aneurysms are seen. NECK CT ANGIOGRAPHY: Carotid system: The great vessels demonstrate a conventional anatomy as they arise from the aortic arch. The origins of the common carotid arteries appear patent. The common carotid arteries demonstrate normal caliber and courses. The bifurcation regions demonstrate atherosclerotic irregularity and calcification, with approximately 50% narrowing involving origin of right internal carotid artery and no significant stenosis seen involving the left internal carotid artery. The more distal internal carotid arteries demonstrate normal course and caliber. Posterior circulation: There is focal calcification seen involving the origin of the left vertebral artery, with approximately 50% narrowing at this site. The origin of the right vertebral artery is within normal limits. The more superior extracranial portions of both vertebral arteries otherwise demonstrate normal courses and calibers. The left vertebral artery is dominant to the right. Soft tissues: Visualized neck soft tissues demonstrate no suspicious abnormalities. Bones: No suspicious bony lesions. Visualized cervical spine appears normally aligned. Relatively prominent cervical spine degenerative change can be seen. IMPRESSION: Greatly reduced flow seen within the right P2 segment. There is approximately 50% narrowing seen involving the origin of the left vertebral artery. Within the arteries of the neck, no additional hemodynamically significant stenosis can be seen. If there is strong clinical suspicion for an acute stroke, please consider a brain MRI for further evaluation, as it is more sensitive (assuming that there is no contraindication to MRI). Any quantitative measurements of stenosis were performed using NASCET criteria. Dictated by: Klaus Nichols M.D. on 12/12/2022 at 12:50 Approved by: Klaus Nichols M.D. on 12/12/2022 at 12:55
--- NOTE | 2022-12-12 13:22 | ED_ITS ---
HPI - General Adult General Chief complaint: Neuro Symptoms/Deficit Stated complaint: fell T-1/ droop on one side of face/sleepy Time Seen by Provider: 12/12/22 13:09 Source: patient Mode of arrival: Wheelchair Limitations: no limitations History of Present Illness HPI narrative: 82-year-old male who has had a stroke in the past. This was many years ago. Had a slight residual left-sided facial droop. Here for evaluation of fall that occurred overnight and coordination issues this morning and worsening left-sided facial droop. He states that he thinks he started to have some balance issues a couple days ago but admits that it has worsened overnight. He thinks that maybe it worsened when he woke up this morning but his states that it was overnight is when he fell. He denies any changes in his vision. No headache. He feels like he is more coordinated with his right arm and right leg with radhika red to the left. He denies chest pain or shortness of breath. No fevers. No abdominal pain. states that there has been no speech changes. No memory changes. Patient is not on anticoagulation. Related Data Home Medications Medication Instructions Recorded Confirmed mupirocin 2 % topical ointment 1 applic topical TID PRN 09/12/20 06/12/21 Previous Rx's Medication Instructions Recorded carvedilol 25 mg tablet 25 mg PO BID #180 tabs 02/13/22 minoxidil 10 mg tablet 10 mg PO DAILY #90 tabs 02/13/22 rosuvastatin 20 mg tablet See Rx Instructions .Route 02/13/22 .COMPLEX #90 tabs Allergies Allergy/AdvReac Type Severity Reaction Status Date / Time indomethacin [INDOMETHACIN] Allergy Severe COMA Verified 02/13/22 07:36 diazepam [DIAZEPAM] Allergy Unknown HEART Verified 02/13/22 07:36 FLUTTER amlodipine AdvReac Intermediate Verified 02/13/22 09:41 clonidine AdvReac Intermediate exercise Verified 02/13/22 09:41 intolerance colchicine AdvReac Intermediate neuropathy Verified 02/13/22 09:41 hydrochlorothiazide AdvReac Intermediate Verified 02/13/22 09:41 lisinopril AdvReac Intermediate Verified 02/13/22 09:41 olmesartan [From Benicar] AdvReac Intermediate Verified 02/13/22 09:41 pregabalin [From Lyrica] AdvReac Intermediate lethargy Verified 02/13/22 09:41 Review of Systems Review of Systems ROS Unobtainable: All systems reviewed & are unremarkable except as noted in HPI and below Patient History Medical History Cataracts, bilateral Cellulitis of great toe Cerebrovascular disease Do not resuscitate Esophageal ring Essential hypertension GERD without esophagitis Gout History of gout History of non anemic vitamin B12 deficiency Hypersomnia Impaired fasting glucose Insomnia, persistent Medicare annual wellness visit, initial Mixed hyperlipidemia Obstructive sleep apnea of adult Paronychia Peripheral neuropathy Snoring Stroke (~08/1969) Ulcer of esophagus due to gastroesophageal reflux disease with complication Surgical History Anesthesia History of abdominal surgery (~06/2015) History of cataract removal with insertion of prosthetic lens (~01/03/22) History of throat surgery (~06/2015) Family History Mother Cancer Congestive heart failure Brother History of blood clots Brother Suicide Grandfather Stomach disorder Grandmother History of heart disease Mental health problem Grandmother Stroke Social History marital status: details: noemí Hoffmann, lives in [place] household members: spouse lives independently: Yes caregiver/support person: No housing: house Smoking Status: Never smoker Smoking Status: Never smoker alcohol intake frequency: a few times a week Substance Use Type: does not use Exam Initial Vital Signs Initial Vital Signs: Vital Signs Temperature 98.3 F 12/12/22 13:06 Pulse Rate 67 12/12/22 13:06 Respiratory Rate 18 12/12/22 13:06 Blood Pressure 132/66 12/12/22 13:06 Pulse Oximetry 96 12/12/22 13:06 Oxygen Delivery Method Room Air 12/12/22 13:06 Const General: cooperative, comfortable and No ill appearing HENMT Head: normal to inspection and normocephalic Nose: external nose normal Resp Effort & Inspection: normal respiratory effort Auscultation: clear to auscultation bilaterally Cardio Rate: regular rate Rhythm: regular rhythm GI Inspection: normal to inspection and non-distended Palpation: soft and No tender Skin General: no rashes or lesions noted Neuro General: patient alert, patient awake, patient oriented x3 and moves all extremities Speech: speech normal Extrem Other: No gross deformities Scores GCS [place] coma scale eye opening: Spontaneous [place] coma scale verbal response: Orientated [place] coma scale motor response: Obey commands [place] coma scale total score: 15 NIH Stroke Scale Level of Conciousness: Alert, keenly responsive Ask month/age: Answers one question correctly, intubated follow commands Open/close eyes, close hand: Performs both tasks correctly Best gaze horizontal: Normal Visual telles: No visual loss Facial palsy: Partial paralysis, total or near total paralysis of lower face Left arm drift: No drift for full 10 sec Right arm drift: No drift for full 10 sec Left leg drift: Drifts down, not to bed Right leg drift: No drift for full 5 sec Limb ataxia: Absent Sensory on face/arms/legs: Mild to moderate sensory loss, can tell touch Best language: No aphasia, normal Dysarthria: Normal Extinction or inattention: No abnormality Total NIH Stroke scale score: 5 Course Orders Ordered: ED Orders 12/12/22 13:12 CT head/brain wo con Stat EKG-12 Lead Stat 12/12/22 13:18 Complete Blood Count AUTO DIFF Stat Comprehensive Metabolic Panel Stat Lipase Stat 12/12/22 13:21 CT angio head and neck Stat Discontinued Medications Aspirin (Aspirin Ec 325 Mg Tablet) 325 mg PO NOW ONE Stop: 12/12/22 14:24 Last Admin: 12/12/22 14:51 Dose: Not Given Documented By: JUAN MANUEL Aspirin (Aspirin 81 Mg Chew Tab) 243 mg PO NOW ONE Stop: 12/12/22 14:44 Last Admin: 12/12/22 14:50 Dose: 243 mg Documented By: JUAN MANUEL Vital Signs Vital signs: Vital Signs - 8 hr 12/12/22 13:06 12/12/22 13:10 12/12/22 13:12 Temperature 98.3 F Pulse Rate 67 69 67 Respiratory Rate 18 Blood Pressure 132/66 Pulse Oximetry 96 98 97 Oxygen Delivery Method Room Air Room Air 12/12/22 13:12 12/12/22 13:32 12/12/22 14:00 Temperature Pulse Rate 64 59 L Respiratory Rate 14 Blood Pressure 132/66 Pulse Oximetry 96 95 Oxygen Delivery Method Room Air 12/12/22 14:30 12/12/22 14:48 12/12/22 14:48 Temperature Pulse Rate 62 60 Respiratory Rate Blood Pressure 148/70 H Pulse Oximetry 96 95 Oxygen Delivery Method 12/12/22 15:00 12/12/22 15:00 Temperature Pulse Rate 64 Respiratory Rate 18 Blood Pressure 163/83 H Pulse Oximetry 97 Oxygen Delivery Method Room Air Medical Decision Making Medical Records Medical records reviewed: Yes I reviewed the patient's medical records. Lab Data Lab results reviewed: Yes I reviewed the patient's lab results. 12/12/22 13:18 12/12/22 13:18 Labs: Lab Results 12/12/22 12/12/22 Range/Units 13:18 13:18 WBC 4.7 (4.5-11.0) X10^3/uL RBC 4.85 (4.5-5.9) X10^6/uL Hgb 14.9 (13.5-17.5) g/dL Hct 44.5 (41-53) % MCV 91.7 (80-100) fL MCH 30.6 (26-34) PG MCHC 33.4 (30-36) % RDW 14.3 (11.6-14.8) % Plt Count 177 (150-400) X10^3/uL Neut % (Auto) 59.8 (50-75) % Lymph % (Auto) 22.4 L (25-40) % [place] % (Auto) 11.4 (3-14) % Eos % (Auto) 5.2 H (2-4) % Baso % (Auto) 1.2 (0-2) % Neut # (Auto) 2800 (1001-1429) /uL Lymph # (Auto) 1100 (9133-0205) /uL [place] # (Auto) 500 (0-900) /uL Eos # (Auto) 200 (0-450) /uL Baso # (Auto) 100 (0-100) /uL Sodium 139 (137-145) mmol/L Potassium 4.5 (3.4-5.1) mmol/L Chloride 103 (98-107) mmol/L Carbon Dioxide 32 (22-32) mmol/L BUN 20 (9-20) mg/dL Creatinine 0.99 (0.66-1.25) mg/dL Estimated GFR > 60 (>60) mL/min BUN/Creatinine Ratio 20.2 (6-22) Glucose 92 (80-110) mg/dL Calcium 8.8 (8.4-10.2) mg/dL Total Bilirubin 0.7 (0.2-1.3) mg/dL AST 23 (17-59) IU/L ALT 17 (<50) IU/L Alkaline Phosphatase 36 L (38-126) U/L Total Protein 6.8 (6.3-8.2) g/dL Albumin 4.0 (3.5-5.0) g/dL Globulin 2.8 (1.7-4.1) g/dL Albumin/Globulin Ratio 1.4 (1.0-2.8) Lipase 108 (23-300) U/L Imaging Data CT scan - head: Radiologist's Impression: PROCEDURE:? CT HEAD/BRAIN WO CON ? INDICATIONS:? Facial droop ? TECHNIQUE:? Noncontrast 4.5 mm thick angled axial sections acquired from the foramen magnum to the vertex, with coronal and sagittal reformats.? For radiation dose reduction, the following was used:? automated exposure control, adjustment of mA and/or kV according to patient size.? ? COMPARISON:? [facility], MR, BRAIN W&WO CONTRAST, 07/29/2017, 16:30.? [facility], CT, CT HEAD/BRAIN WO CON, 11/09/2017, 11:29. ? FINDINGS:? Image quality:? Excellent.? ? CSF spaces:? Basal cisterns are patent.? No extra-axial fluid collections.? The ventricles are symmetric in size and shape.? ? Brain:? No intracranial bleeds or masses.? There is cerebral volume loss for age, with resultant ventricular and sulcal prominence.? There are periventricular and deep white matter chronic small vessel ischemic changes.? There is intracranial internal carotid artery atherosclerosis.? ? In this patient with a shell droop, scrutiny is given to the courses of the facial nerves, including within the visualized parotid glands.? To the limits of this standard protocol noncontrast head CT, no abnormalities are seen along these regions. ? Skull and face:? Calvarium and visualized facial bones appear intact, without suspicious lesions.? ? Sinuses:? Moderate mucosal thickening is partially seen within the left maxillary sinus.? The paranasal sinuses are otherwise unremarkable. No abnormal fluid is seen within the mastoid air cells. ? IMPRESSION:? ? No acute intracranial process is seen.? ? If there is strong clinical suspicion for an acute stroke, please consider a brain MRI for further evaluation, as it is more sensitive (assuming that there is no contraindication to MRI). ? Focal left maxillary sinus again seen. CTA - brain/neck: Radiologist's Impression: PROCEDURE:? CT ANGIO HEAD AND NECK ? INDICATIONS:? L sided facial droop ? TECHNIQUE:? After the administration of intravenous contrast, 1 mm thick sections acquired from the aortic arch through the [place].? 3-dimensional xdmwlmb-yhumkekuq-cxcqmxrjea (MIP) and/or volume rendering reformats were acquired of the central intracranial vasculature and neck separately. For radiation dose reduction, the following was used:? automated exposure control, adjustment of mA and/or kV according to patient size.? ? COMPARISON:? [facility], MR, ANGIOGRAM NECK WITH CONTRAST, 06/22/2007, 8 :06.? [facility], MR, BRAIN W&WO CONTRAST, 07/29/2017, 16:30.? [facility], CT, CT HEAD/BRAIN WO CON, 11/09/2017, 11:29.? [facility], CT, CT HEAD/BRAIN WO CON, 12/12/2022, 13:20. ? FINDINGS:? Image quality:? Diagnostic.? ? BRAIN:? CSF spaces:? Ventricles are normal in size and shape.? Basal cisterns are patent.? No extra-axial fluid collections.? ? Brain:? No midline shift.? No intracranial bleeds or masses.? Muro-white matter interface appears intact.? ? Skull and face:? In this patient with this given history, scrutiny is given to the course of the left facial nerve, including within the parotid gland.? The limits of this standard protocol CT study, no abnormality of the left facial nerve is detected.? Calvarium and facial bones appear intact, without suspicious lesions.? Orbits appear normal.? ? Sinuses:? Sinuses and mastoids are clear.? ? HEAD CT ANGIOGRAPHY:? Anterior circulation:? Intracranial internal carotid arteries demonstrate generalized atherosclerotic irregularity, with up to 50% narrowing on each side.? The flow within the paired anterior cerebral arteries is normal and symmetric.? The flow within the middle cerebral arteries is normal and symmetric.? The anterior communicating artery is seen.? No aneurysms are seen.? ? Posterior circulation:? Visualized portions of the vertebral arteries demonstrate normal caliber, and join to form a normal appearing basilar artery.? Asymmetric flow is seen within the posterior cerebral arteries, which is greatly reduced on the right beginning at the level of the P2 segment.? No aneurysms are seen.? ? NECK CT ANGIOGRAPHY:? Carotid system:? The great vessels demonstrate a conventional anatomy as they arise from the aortic arch.? The origins of the common carotid arteries appear patent.? The common carotid arteries demonstrate normal caliber and courses.? The bifurcation regions demonstrate atherosclerotic irregularity and calcification, with approximately 50% narrowing involving origin of right internal carotid artery and no significant stenosis seen involving the left internal carotid artery. The more distal internal carotid arteries demonstrate normal course and caliber.? ? Posterior circulation:? There is focal calcification seen involving the origin of the left vertebral artery, with approximately 50% narrowing at this site.? The origin of the right vertebral artery is within normal limits.? The more superior extracranial portions of both vertebral arteries otherwise demonstrate normal courses and calibers.? The left vertebral artery is dominant to the right.? ? Soft tissues:? Visualized neck soft tissues demonstrate no suspicious abnormalities.? ? Bones:? No suspicious bony lesions.? Visualized cervical spine appears normally aligned.? Relatively prominent cervical spine degenerative change can be seen. ? ? IMPRESSION:? Greatly reduced flow seen within the right P2 segment. ? There is approximately 50% narrowing seen involving the origin of the left vertebral artery. ? Within the arteries of the neck, no additional hemodynamically significant stenosis can be seen. ? ? If there is strong clinical suspicion for an acute stroke, please consider a brain MRI for further evaluation, as it is more sensitive (assuming that there is no contraindication to MRI). ECG Data Attestation: I personally reviewed and interpreted this ECG as follows: Interpretation: Sinus rhythm Ventricular rate is 66 Normal axis Normal QRS Normal QTC No ST T wave changes MDM Narrative Medical decision making narrative: Workup here in the emergency department is very concerning for a CVA. Initial NIH scale was 5. His symptoms potentially started a couple days ago when he stated that he was having balance issues. I did discuss the case with stroke Neurology at the [facility]. They recommended no tPA. No emerge nt intervention. Recommended admission to the hospital. Dual antiplatelet. MRI, echocardiogram. I did discuss this with the patient. I then discussed the case with Dr. Mayen hospitalist who will admit for further evaluation and treatment. Discharge Plan Departure Patient Disposition: Admitted As Inpatient Clinical Impression: CVA (cerebral vascular accident) Admit Date/Time: 12/12/22 15:28 Admit Provider: Gray Mayen
[2022-12-12 13:28] LABS: Add Manual Diff / Slide Review NO; Basophils Absolute Auto 100 /uL (0-100); Basophils Percent Auto 1.2 % (0-2); Eosinophils Absolute Auto 200 /uL (0-450); Eosinophils Percent Auto 5.2 % (2-4); Hematocrit 44.5 % (41-53); Hemoglobin 14.9 g/dL (13.5-17.5); Lymphocytes Absolute Auto 1100 /uL (1100-4500); Lymphocytes Percent Auto 22.4 % (25-40); Mean Corpuscular HGB Conc 33.4 % (30-36); Mean Corpuscular Hemoglobin 30.6 PG (26-34); Mean Corpuscular Volume 91.7 fL (80-100); Monocytes Absolute Auto 500 /uL (0-900); Monocytes Percent Auto 11.4 % (3-14); Neutrophils Absolute Auto 2800 /uL (1500-7000); Neutrophils Percent Auto 59.8 % (50-75); Platelet Count 177 X10^3/uL (150-400); Red Blood Cell Count 4.85 X10^6/uL (4.5-5.9); Red Cell Distribution Width 14.3 % (11.6-14.8); White Blood Cell Count 4.7 X10^3/uL (4.5-11.0)
[2022-12-12 13:44] LABS: Alanine Aminotransferase 17 IU/L (<50); Albumin Globulin Ratio 1.4 (1.0-2.8); Alkaline Phosphatase 36 U/L (38-126); Aspartate Aminotransferase 23 IU/L (17-59); BUN Creatinine Ratio 20.2 (6-22); Bilirubin Total 0.7 mg/dL (0.2-1.3); Blood Urea Nitrogen 20 mg/dL (9-20); Calcium 8.8 mg/dL (8.4-10.2); Carbon Dioxide 32 mmol/L (22-32); Chloride 103 mmol/L (98-107); Estimated Glomerular Filt Rate > 60 mL/min (>60); Globulin 2.8 g/dL (1.7-4.1); Glucose 92 mg/dL (80-110); HEMOLYSIS < 15 (0-50); Lipase 108 U/L (23-300); Potassium 4.5 mmol/L (3.4-5.1); Sodium 139 mmol/L (137-145); Total Protein 6.8 g/dL (6.3-8.2)
--- NOTE | 2022-12-12 13:54 | PC.NURSE ---
Addendum entered by Elian Carpenter R.N. 12/12/22 14:26: I clarrified with patient's spouse: patient has had L side facial droop since his stroke 8-10 years ago, but she believes the pt's left side of face appears to have increased droop this morning. Original Note: Pt states his left side feels weaker today. Baseline L side facial droop which is unchanged today per spouse.
[2022-12-12] MEDS: ASPIRIN 81 MG CHEW TAB 243 MG PO (14:50)
--- NOTE | 2022-12-12 17:13 | PM.HP.1 ---
History of Present Illness History of Present Illness Date Patient Seen: 12/12/22 Time Patient Seen: 17:13 Chief complaint: fell T-1/ droop on one side of face/sleepy Narrative: This is an 82 year old male with PMH of prior CVA, HTN, YASIR, prior partial seizure (not on antiepileptics due to presumed provoked due to GI procedure per documentation) who presented to the emergency room with left sided weakness and facial droop when he awoke this morning. Patient states over the past few weeks he has actually noticed some balance issues and difficulty ambulating, with some dry mouth as well. He denies chest pain, shortness of breath, palpitations, leg edema, fever, chills. This morning he woke up with difficulty moving his left hand, and some left hand numbness, and left sided facial droop. This improved after about 45 minutes per the patient, and now only has facial droop on the left. In the emergency room, initial NIH was 5, given unclear last known normal he was not a TPA or interventional candidate. Telestroke service did recommend DAPT. He has no history of afib. CT imaging showed no hemorrhage, with CTA showing reduced P2 flow, not consitent with his current symptomatology. He was admitted for presumed stroke, MRI has been ordered. [facility] Medical History Cataracts, bilateral Cellulitis of great toe Cerebrovascular disease Do not resuscitate Esophageal ring Essential hypertension GERD without esophagitis Gout History of gout History of non anemic vitamin B12 deficiency Hypersomnia Impaired fasting glucose Insomnia, persistent Medicare annual wellness visit, initial Mixed hyperlipidemia Obstructive sleep apnea of adult Paronychia Peripheral neuropathy Snoring Stroke (~08/1969) Ulcer of esophagus due to gastroesophageal reflux disease with complication Surgical History Anesthesia History of abdominal surgery (~06/2015) History of cataract removal with insertion of prosthetic lens (~01/03/22) History of throat surgery (~06/2015) Family History Mother Cancer Congestive heart failure Brother History of blood clots Brother Suicide Grandfather Stomach disorder Grandmother History of heart disease Mental health problem Grandmother Stroke Social History marital status: details: noemí Hoffmann, lives in [place] household members: spouse lives independently: Yes caregiver/support person: No housing: house Smoking Status: Never smoker alcohol intake: current Meds Home Medications and Allergies Home Medications Medication Instructions Recorded Confirmed Type carvedilol 25 mg tablet 25 mg PO BID #180 tabs 02/13/22 12/12/22 Rx minoxidil 10 mg tablet 10 mg PO DAILY #90 tabs 02/13/22 12/12/22 Rx rosuvastatin 20 mg tablet See Rx Instructions .Route 02/13/22 12/12/22 Rx .COMPLEX #90 tabs Allergies Allergy/AdvReac Type Severity Reaction Status Date / Time indomethacin [INDOMETHACIN] Allergy Severe COMA Verified 02/13/22 07:36 diazepam [DIAZEPAM] Allergy Unknown HEART Verified 02/13/22 07:36 FLUTTER amlodipine AdvReac Intermediate Verified 02/13/22 09:41 clonidine AdvReac Intermediate exercise Verified 02/13/22 09:41 intolerance colchicine AdvReac Intermediate neuropathy Verified 02/13/22 09:41 hydrochlorothiazide AdvReac Intermediate Verified 02/13/22 09:41 lisinopril AdvReac Intermediate Verified 02/13/22 09:41 olmesartan [From Benicar] AdvReac Intermediate Verified 02/13/22 09:41 pregabalin [From Lyrica] AdvReac Intermediate lethargy Verified 02/13/22 09:41 Review of Systems Review of Systems Narrative: All other systems reviewed with the patient and are negative unless otherwise stated. Exam Vital Signs (past 8 hours): - 12/12/22 13:06 12/12/22 13:10 12/12/22 13:12 Temperature 98.3 F Pulse Rate 67 69 67 Respiratory Rate 18 Blood Pressure 132/66 Pulse Oximetry 96 98 97 Oxygen Delivery Method Room Air Room Air Oxygen Flow Rate 12/12/22 13:12 12/12/22 13:32 12/12/22 14:00 Temperature Pulse Rate 64 59 L Respiratory Rate 14 Blood Pressure 132/66 Pulse Oximetry 96 95 Oxygen Delivery Method Room Air Oxygen Flow Rate 12/12/22 14:30 12/12/22 14:48 12/12/22 14:48 Temperature Pulse Rate 62 60 Respiratory Rate Blood Pressure 148/70 H Pulse Oximetry 96 95 Oxygen Delivery Method Oxygen Flow Rate 12/12/22 15:00 12/12/22 15:00 12/12/22 15:30 Temperature Pulse Rate 64 Respiratory Rate 18 Blood Pressure 163/83 H 153/76 H Pulse Oximetry 97 Oxygen Delivery Method Room Air Oxygen Flow Rate 12/12/22 15:30 12/12/22 16:00 12/12/22 16:00 Temperature Pulse Rate 64 61 Respiratory Rate 24 15 Blood Pressure 129/63 Pulse Oximetry 97 96 Oxygen Delivery Method Room Air Room Air Oxygen Flow Rate 12/12/22 16:40 Temperature 97.4 F L Pulse Rate 60 Respiratory Rate 18 Blood Pressure 140/77 Pulse Oximetry 96 Oxygen Delivery Method Oxygen Flow Rate 0 Oxygen Delivery Method Room Air Oxygen Flow Rate 0 Narrative Exam Narrative: General:? Patient is well developed and well nourished, in no distress at this time. HEENT:? Normocephalic, atraumatic, extraocular muscles intact, oral pharynx is clear and mucous membranes are moist. Neck: supple and symmetric, trachea is midline, no cervical adenopathy. Negative for JVD Chest:? Normal AP diameter and contour without kyphoscoliosis, no tachypnea, equal chest rise bilaterally. Lungs:? CTA b/l no wheezing rhonchi or rales. Cardio:?RRR no m/r/g. Abdomen: S NT ND. Musculoskeletal:? Muscle strength and tone are equal within normal limits, no deformity. Extremities: No edema or joint effusions. No cyanosis or clubbing. Skin:? Pale,? Warm to touch,dry and intact without rashes, ulcerations or petechiae.? Neuro:? Alert and orientated x3,? sensation to touch intact in all extremities to light touch, left facial droop, please see NIH of 1 noted below. Psych:? Patient has a well-kept appearance, appropriate affect, mental status attitude thought context and judgment are appropriate for age. Objective ECG Impression: NSR with no acute ischemia as interpreted by me. Labs 12/12/22 13:18 12/12/22 13:18 Labs: Laboratory Results - last 24 hr 12/12/22 12/12/22 13:18 13:18 WBC 4.7 RBC 4.85 Hgb 14.9 Hct 44.5 MCV 91.7 MCH 30.6 MCHC 33.4 RDW 14.3 Plt Count 177 Neut % (Auto) 59.8 Lymph % (Auto) 22.4 L Union % (Auto) 11.4 Eos % (Auto) 5.2 H Baso % (Auto) 1.2 Neut # (Auto) 2800 Lymph # (Auto) 1100 Union # (Auto) 500 Eos # (Auto) 200 Baso # (Auto) 100 Sodium 139 Potassium 4.5 Chloride 103 Carbon Dioxide 32 BUN 20 Creatinine 0.99 Estimated GFR > 60 BUN/Creatinine Ratio 20.2 Glucose 92 Calcium 8.8 Total Bilirubin 0.7 AST 23 ALT 17 Alkaline Phosphatase 36 L Total Protein 6.8 Albumin 4.0 Globulin 2.8 Albumin/Globulin Ratio 1.4 Lipase 108 Assessment & Plan Assessment & Plan narrative: 1. Acute CVA - NIH 5 improving to 1 after arrival to the floor. - asa 81 mg daily for life and plavix 75 mg for 21 days. - substitute formulary atorvastatin 80 mg for rosuvastatin 20. - telemetry monitoring for afib. - differential does include seizure, though no evdience thus far - MRI ordered - TTE ordered - PT/OT ordered, consider speech though no current difficulties despite facial droop. 2. Essential HTN - continue home coreg 3. History of prior seizure - not on antiepileptics 4. YASIR - continue home CPAP if able Code: discussed code status with patient, he has an advanced directive stating DNR, however in discussion with him if he can be resuscitated to his current state he would want us to do inteventions to accomplish that. This is consistent with Full code. He does not wish to be on prolonged life support nor would he want feeding tube. Surrogate is patient's spouse I have utilized all available immediate resources to obtain, update, or review the patient's current medications. Dispo: admitted as inpatient as his stay is expected to exceed two midnights with ongoing neurological deficits. Likely discharge home at this time. Further history obtained via discussion with ER provider and review of scanned documentation. I have reviewed patient's imaging, labs, and EKG personally. Discussed plan of care with patient. Scores NIHSS Level of Conciousness: Alert, keenly responsive Ask month/age: Answers both questions correctly. Open/close eyes, close hand: Performs both tasks correctly Best gaze horizontal: Normal Visual telles: No visual loss Facial palsy: Minor paralysis, flattened nasolabial fold, asymmetry on smiling Left arm drift: No drift for full 10 sec Right arm drift: No drift for full 10 sec Left leg drift: No drift for full 5 sec Right leg drift: No drift for full 5 sec Limb ataxia: Absent Sensory on face/arms/legs: Normal, no sensory loss Best language: No aphasia, normal Dysarthria: Normal Extinction or inattention: No abnormality Total NIH Stroke scale score: 1 Quality VTE Deep Vein Thrombosis/Pulmonary Embolism Present on Admission: No MIPS - Admit I confirm the patient?s Advance Care Plan is present, Code status is documented, Surrogate decision maker is in patient?s record [If Yes, STOP here]: Yes
--- NOTE | 2022-12-12 17:30 | DI.ECHO.S_ITS ---
[facility]---------+ [facility] +---------+ : : [address] : : : : [id number] : : : : Phone: [phone]+ Echocardiogram Report + + :Name: EZEQUIEL TERRAZAS Study Date: 12/13/2022 Height: 71 in : :[facility] ReadingLocation: Weight: 170 lb : : Gender: Male BSA: 2.0 m2 : :: 1940 Age: 82 yrs BP: 140/77 mmHg: :Reason For Study: CVA : :Ordering Physician: MICHAELA, : :MARK OCAMPO Performed By: Cathy Qureshi : :Referring: MARK JENNINGS : + + Interpretation Summary The ejection fraction is estimated to be 55-60%. There are no obvious focal wall motion abnormalities noted but poor endocardial definition reduces the sensitivity for the detection of such. There is mild aortic regurgitation. The ascending aorta is mildly enlarged. There is no Doppler evidence for an interatrial shunt. Procedure: A two-dimensional transthoracic echocardiogram with color flow and Doppler was performed. The study quality was technically adequate. There is no prior echocardiogram noted for this patient. The patient was in a bradycardic rhythm during the exam. Left Ventricle: The left ventricle is normal in size. The ejection fraction is estimated to be 55-60%. There are no obvious focal wall motion abnormalities noted but poor endocardial definition reduces the sensitivity for the detection of such. Diastolic parameters suggest a relaxation abnormality of the left ventricle, consistent with probable normal filling pressures. Right Ventricle: The right ventricle is mildly dilated. The right ventricular systolic function is normal. Atria: The left atrial size is normal. Right atrial size is normal. There is no Doppler evidence for an interatrial shunt. Mitral Valve: The mitral valve is normal. There is no mitral valve stenosis. There is trace mitral regurgitation. Aortic Valve: The aortic valve is trileaflet. The aortic valve opens well. There is no aortic valve stenosis. There is mild aortic regurgitation. Tricuspid Valve: The tricuspid valve leaflets are thin and pliable. There is no tricuspid stenosis. There is trace tricuspid regurgitation. Pulmonic Valve: The pulmonic valve is not well visualized. There is no pulmonic valvular stenosis. There is no pulmonic valvular regurgitation. Great Vessels: The aortic root is mildly dilated. The ascending aorta is mildly enlarged. The pulmonary artery is normal size. The inferior vena cava was not well visualized. Pericardium/ Pleura There is no pericardial effusion. MMode/2D Measurements & Calculations LVIDd: 5.1 cm LVOT diam: 2.1 cm LVIDs: 3.9 cm Ao root diam: 4.1 cm FS: 23.5 % asc Aorta Diam: 4.0 cm IVSd: 0.80 cm LVPWd: 0.80 cm LV leung. diameter/BSA (cm/m^2): 2.6 LV sys. diameter/BSA (cm/m^2): 2.0 LA A2 area: 21.6 cm2 RA long axis: 4.9 cm LA A4 area: 15.1 cm2 RA area: 13.3 cm2 LA length (vol): 5.8 cm RA vol: 30.8 ml LA vol: 48.1 ml RA : 15.6 ml/m2 LA vol index: 24.4 ml/m2 RVD1 (basal): 4.3 cm LVLs ap4: 6.2 cm LVLd ap2: 7.4 cm TAPSE_phl: 2.3 cm LVLs ap2: 6.0 cm Doppler Measurements & Calculations Ao V2 max: 123.0 cm/sec LVOT Max Amilcar: 98.7 cm/sec Ao V2 mean: 87.1 cm/sec LV V1 max P.9 mmHg Ao max P.0 mmHg LV V1 VTI: 25.9 cm Ao mean P.0 mmHg JONAH(I,D): 2.6 cm2 Ao V2 VTI: 34.9 cm JONAH(V,D): 2.8 cm2 sev ratio: 0.74 JONAH indexed to BSA (cm^2/m^2): 1.3 MV E max amilcar: 76.8 cm/sec TR max amilcar: 231.5 cm/sec MV A max amilcar: 53.8 cm/sec TR max P.5 mmHg MV E/A: 1.4 PA V2 max: 81.9 cm/sec MV dec time: 0.19 sec PA V2 mean: 60.0 cm/sec PA mean P.0 mmHg PA pr(Accel): 30.4 mmHg SV(LVOT): 89.7 ml AV VR_phl: 0.80 JOANH(VTI)/BSA_phl: 1.3 MV P1/2t-pr_phl: 57.0 msec Reading Physician:09:42 AM
--- NOTE | 2022-12-12 18:36 | PC.NURSE ---
Day shift: Pt admitted to acute care from ER. NIH score 3. Baseline L sided facial droop from previous stroke multiple years ago. Pt reports mild dizziness with ambulation. Denies pain. Tolerating general diet. No nausea. Plan for MRI at 1900 this evening. Will continue to monitor.
[2022-12-12] MEDS: ATORVASTATIN 20 MG TABLET 80 MG PO (20:49)
[2022-12-13] VITALS (10 sets, daily range): BP systolic 134–165; BP diastolic 69–89; PULSE 52–61; RESP 16–18; TEMP 36.1–36.6; O2SAT 95–100
[2022-12-13 06:21] LABS: Add Manual Diff / Slide Review NO; Basophils Absolute Auto 100 /uL (0-100); Basophils Percent Auto 0.8 % (0-2); Eosinophils Absolute Auto 300 /uL (0-450); Eosinophils Percent Auto 5.6 % (2-4); Hematocrit 44.5 % (41-53); Lymphocytes Absolute Auto 1400 /uL (1100-4500); Lymphocytes Percent Auto 23.5 % (25-40); Mean Corpuscular HGB Conc 33.7 % (30-36); Mean Corpuscular Hemoglobin 30.5 PG (26-34); Mean Corpuscular Volume 90.6 fL (80-100); Monocytes Absolute Auto 800 /uL (0-900); Monocytes Percent Auto 12.3 % (3-14); Neutrophils Absolute Auto 3500 /uL (1500-7000); Neutrophils Percent Auto 57.8 % (50-75); Platelet Count 172 X10^3/uL (150-400); Red Blood Cell Count 4.91 X10^6/uL (4.5-5.9); Red Cell Distribution Width 14.1 % (11.6-14.8); White Blood Cell Count 6.1 X10^3/uL (4.5-11.0)
[2022-12-13 06:27] LABS: BUN Creatinine Ratio 22.1 (6-22); Blood Urea Nitrogen 19 mg/dL (9-20); Calcium 8.8 mg/dL (8.4-10.2); Carbon Dioxide 29 mmol/L (22-32); Chloride 105 mmol/L (98-107); Cholesterol 110 mg/dL (140-199); Estimated Glomerular Filt Rate > 60 mL/min (>60); Glucose 93 mg/dL (80-110); HDL Cholesterol 39 mg/dL (40-60); HEMOLYSIS < 15 (0-50); LDL Cholesterol Calculated 54 mg/dL (<100); Magnesium 2.1 mg/dL (1.6-2.3); Potassium 4.1 mmol/L (3.4-5.1); Sodium 138 mmol/L (137-145); Triglycerides 83 mg/dL (35-150)
[2022-12-13] MEDS: carvediloL 12.5 MG TABLET 25 MG PO ×2 (08:42→20:54)
[2022-12-13] MEDS: CLOPIDOGREL 75 MG TABLET PO (08:43)
[2022-12-13] MEDS: ENOXAPARIN 40 MG/0.4 ML SYRINGE SUBCUT (08:44)
[2022-12-13] MEDS: ASPIRIN EC 81 MG TABLET PO (08:44)
--- NOTE | 2022-12-13 11:13 | CM.DANOTE ---
Initial Discharge Assessment Note: Case reviewed, met with patient and spouse. Introduced self and role. Payer: Medicare and [facility] PCP: Dr Valente Puente 82 year old admitted with left sided weakness and facial droop. At baseline he has left facial droop. PMH: CVA and a new CVA. He ususally walks 4 miles a day with trekking poles. PT/OT evaluating. Patient lives with spouse Tahira. He is independent and active. Plan: Follow up with PT/OT evaluation recommendations. DAVID Discharge Planning/Care Management CM Discharge Assessment Start: 12/13/22 11:04 Freq: Status: Active Protocol: Document 12/13/22 11:04 (Rec: 12/13/22 11:13 [id number]) Discharge Planning Assessment Assigned Machine Tool Technology Instructor Rosy Emmanuel RN/JEANINEP Advance Directives? Yes: :POLST:Advance Directive Advance Directives on File Yes History Provided By Patient,Family Member,Medical Record Prior Living Arrangements House Household Members spouse Type of transporation used prior to Drives own vehicle admit Independent with ADL's Yes Is patient alert and oriented? Yes Needs Assistance With Managing Medications,Home Chores / Shopping Comment Walks 4 miles a day with walking sticks Caregiver for Another No DME Already Rented / Owned FWW / Walker,Other Comment trek poles Barriers to Discharge No Discharge Plan Home Transportation Arrangement Spouse would transport Additional Comment To be determined Review Status In Process Next Review Type Continued Stay Review
--- NOTE | 2022-12-13 11:14 | PT.IIE ---
Current Diagnoses Cerebral infarction, unspecified (12/12/22) Surgical History (Last Reviewed 12/12/22 @ 17:16 by Gray Mayen DO) Anesthesia History of abdominal surgery (~06/2015) History of cataract removal with insertion of prosthetic lens (~01/03/22) History of throat surgery (~06/2015) Medical History (Last Reviewed 12/12/22 @ 17:16 by Gray Mayen DO) Cataracts, bilateral Cellulitis of great toe Cerebrovascular disease Do not resuscitate Esophageal ring Essential hypertension GERD without esophagitis Gout History of gout History of non anemic vitamin B12 deficiency Hypersomnia Impaired fasting glucose Insomnia, persistent Medicare annual wellness visit, initial Mixed hyperlipidemia Obstructive sleep apnea of adult Paronychia Peripheral neuropathy Snoring Stroke (~08/1969) Ulcer of esophagus due to gastroesophageal reflux disease with complication Physical Therapy Inpatient Evaluation/Re-Eval M1 PT/OT-IP Prior Functional Status Start: 12/13/22 10:34 Freq: NEEDED Status: Active Protocol: Document 12/13/22 10:47 MB (Rec: 12/13/22 11:14 MB [id number]) Medical Review Prior Functional Status Medical History Reviewed Yes Diet/Fluid Consistency Regular Communication Normal, states pt is NOATAK and needs hearing aides. She states he has had delayed processing recently. Mobility and Gait I, walked at [place], several miles a day Activities of Daily Living and IADL's I Prior Functional Level (Other details) Reports recent trouble managing spread sheets on his computer. Social History Household Members spouse Living Arrangements House Number of Floors (Floors) One Floor Number of Stairs To Enter/Railing? None Home Environment Standard Height Toilet Employment Status Retired M2 PT-IP Current Condition Start: 12/13/22 10:34 Freq: NEEDED Status: Active Protocol: Document 12/13/22 10:47 MB (Rec: 12/13/22 11:14 MB [id number]) Physical Therapy Current Condition Current Condition Evaluation Date 12/13/22 Treatment Diagnosis Right thalamic infarct, mild L facial droop, processing delays, LLE weak Onset Date A few days, history of similar symptoms and stroke at least 10 years ago M3 PT-IP Subjective Start: 12/13/22 10:34 Freq: NEEDED Status: Active Protocol: Document 12/13/22 10:47 MB (Rec: 12/13/22 11:14 MB [id number]) Subjective Physical Therapy Visit Type Type Initial Evaluation Visit Start Time 10:47 Visit Stop Time 11:00 Total Visit Minutes 13 Number of CHIP APPLYING MACHINE TENDER Visits 0 Physical Therapy Visit Comments Patient Comments Pt states he thinks he wants to use the walker. Therapy Pain Assessment Pain When Pain Assessed At Rest Pain Present Pain Present Denied Pain M4 PT-IP Mobility and Gait Start: 12/13/22 10:34 Freq: NEEDED Status: Active Protocol: Document 12/13/22 10:47 MB (Rec: 12/13/22 11:14 MB [id number]) PT-Bed Mobility Assessment Supine to Sit Supine to Sit Independent Sit to Supine Sit to Supine Independent Scooting Scooting to Edge of Bed Independent PT-Transfer Assessment Sit to and From Stand Sit to and from Stand Independent Equipment Transfer Assistive Device Gait Belt Orthotic/Prosthetic Devices or Brace: No Gait Assessment Gait Gait Assistance Required: Independent Distance (Feet) 15 Assistive Devices Assistive Device Gait Belt Orthotic/Prosthetic Devices or Brace: No Gait Deviations General Gait Pattern Within Normal Limits Comments Gait Comments FGA tasks completed: changing gait speed, minimal head turns , backwards walking, turning full circles, walking forward with eyes closed and steps x2 with rail, all I and without LOB Stair Climbing Assessment Evaluation Level of Assist On Stairs Independent Devices Stair Climbing Assistive Devices Left Railing,Right Railing Technique/Endurance Stair Climbing Direction Ascend and Descend Stair Climbing Technique Step Over Step Number of Steps Climbed 3 Query Text: Stair Climbing Set # Repetitions (reps) 2 PT-Balance Assessment Sitting Balance and Reactions Static Sitting Balance Ability Normal Dynamic Sitting Balance Ability Normal Standing Balance and Reactions Static Standing Balance Ability Normal Dynamic Standing Balance Ability Normal Comments Other Balance Tests/Deviations/Treatment See gait comments for FGA : tasks M5 PT-IP Objective Assessments Start: 12/13/22 10:34 Freq: NEEDED Status: Active Protocol: Document 12/13/22 10:47 MB (Rec: 12/13/22 11:14 MB [id number]) Orientation Orientation/Cognition Level of Alertness Alert Orientation Name,Age,Birthday,Month,Place, Situation Language Function Ability No Deficits Noted,Hard of Hearing Safety Awareness Understands Safety Issues Memory Description No Deficits Noted Comments Pt does have delayed processing of commands occasionally Gross Range of Motion Upper Extremity ROM Impairments Defer to OT Lower Extremity ROM Assessment Left Impaired Strength Lower Extremity Strength Assessment Left Impaired Hip 4-/5 Knee 4/5 Ankle 4/5 Coordination Assessment Assessment Foot Tapping Test Minimal Impairment Heel on [place] Test Minimal Impairment M7 PT-IP Assessment and Plan Start: 12/13/22 10:34 Freq: NEEDED Status: Active Protocol: Document 12/13/22 10:47 MB (Rec: 12/13/22 11:14 MB [id number]) PT Summary Assessment and Plan Potential Rehabilitation Potential Excellent Status of Condition at Evaluation Evolving Summary Progress Towards Goals Goals Met Assessment Summary Pt is an 82 y/o male who presents with occ delayed processing with PT commands, NOATAK per , mild left facial droop with history of facial droop from old stroke at least 10 years ago and mild LlE weakness. He scores very well with gait and functional gait tasks including gait speed, turning, backwards walking, walking forward with eyes closed, ascend and descend steps with rails and he is I with these tasks and has no LOB. Pt and report recent cognitive challenges. Pt is being assessed by inpatient OT and may benefit from outpatient speech for cognitive rehabilitation if OT is in agreement. He has no acute PT needs. Pt educated on fall risk and blood thinners and to maybe walk with friends in [facility] currently. Frequency of Treatment Frequency Of Treatment Discharge Recommendations To Nursing Amount of Assist Needed Standby Assistance Discharge Recommendations PT Discharge Recommendations Home with Assistance Other Discharge Recommendations If OT in agreement, outpatient cognitivie assessment and rehabilitation with speech therapist Transportation Needs at Discharge Private Vehicle
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
--- NOTE | 2022-12-13 14:24 | PM.PN.1 ---
Subjective Subjective Date Patient Seen: 12/13/22 Interval history: 82 yo male with h/o remote CVA, HTN, HLM presented due to acute left side weakness. MR indicates sub-acute rt thalamic CVA. Pt with total or near total improvement of presenting left side weakness. He has residual mild left facial droop due to prior CVA. Per OT eval sig cognitive deficits with mem recall and competing tasks, SLUMS , awating ST eval. Did well with PT eval. Exam Vital Signs (past 8 hours): - 12/13/22 08:00 12/13/22 08:42 12/13/22 08:00 Temperature 97.8 F Pulse Rate 53 L 53 L Respiratory Rate 17 Blood Pressure 158/76 H 158/76 H Pulse Oximetry 96 96 Oxygen Delivery Method Room Air Oxygen Flow Rate 0 Oxygen Delivery Method Room Air Oxygen Flow Rate 0 Narrative Exam Narrative: Gen: alert, NAD CV: regular Neuro: mild left facial droop, no pronator drift, F to N nl, leg raise equal bilat Objective Labs 12/13/22 05:20 12/13/22 05:20 Labs: Laboratory Results - last 24 hr 12/13/22 12/13/22 12/13/22 05:20 05:20 05:20 WBC 6.1 RBC 4.91 Hgb 15.0 Hct 44.5 MCV 90.6 MCH 30.5 MCHC 33.7 RDW 14.1 Plt Count 172 Neut % (Auto) 57.8 Lymph % (Auto) 23.5 L Ware % (Auto) 12.3 Eos % (Auto) 5.6 H Baso % (Auto) 0.8 Neut # (Auto) 3500 Lymph # (Auto) 1400 Ware # (Auto) 800 Eos # (Auto) 300 Baso # (Auto) 100 Sodium 138 Potassium 4.1 Chloride 105 Carbon Dioxide 29 BUN 19 Creatinine 0.86 Estimated GFR > 60 BUN/Creatinine Ratio 22.1 H Glucose 93 Calcium 8.8 Magnesium 2.1 Triglycerides 83 Cholesterol 110 L LDL Cholesterol, Calc 54 HDL Cholesterol 39 L TSH 4.40 [facility] Medical History Cataracts, bilateral Cellulitis of great toe Cerebrovascular disease Do not resuscitate Esophageal ring Essential hypertension GERD without esophagitis Gout History of gout History of non anemic vitamin B12 deficiency Hypersomnia Impaired fasting glucose Insomnia, persistent Medicare annual wellness visit, initial Mixed hyperlipidemia Obstructive sleep apnea of adult Paronychia Peripheral neuropathy Snoring Stroke (~08/1969) Ulcer of esophagus due to gastroesophageal reflux disease with complication Surgical History Anesthesia History of abdominal surgery (~06/2015) History of cataract removal with insertion of prosthetic lens (~01/03/22) History of throat surgery (~06/2015) Family History Mother Cancer Congestive heart failure Brother History of blood clots Brother Suicide Grandfather Stomach disorder Grandmother History of heart disease Mental health problem Grandmother Stroke Social History marital status: details: noemí Hoffmann, lives in [place] household members: spouse lives independently: Yes caregiver/support person: No housing: house Smoking Status: Never smoker alcohol intake: current Assessment & Plan Assessment & Plan narrative: 1. Acute CVA ?- NIH 5 improving to 1 after arrival to the floor. - pt was taking 81 mg daily ASA prior to this event - CTA mod disease - ECHO 55-60%, mild AR, mild enlargemnt ascending aorta - MRI sub-acute right thalamic stroke ?- asa 81 mg daily and plavix 75 mg for 21 days, then Plavix alone for life. ?- substitute formulary atorvastatin 80 mg for rosuvastatin 20. (LDL 54) ?- telemetry monitoring for afib. ?- PT/OT/ST - likely home discharge tomorrow 2. Essential HTN ?- continue home coreg - hold po minoxidil to allow permissive HTN 3. History of prior seizure ?- not on antiepileptics 4. YASIR ?- continue home CPAP if able 5. Cognitive deficits - ST eval pending - nl TSH Quality VTE Deep Vein Thrombosis/Pulmonary Embolism Present on Admission: No
--- NOTE | 2022-12-13 15:35 | ST.IPIE ---
Visit Care Team Role Provider Type Valente Puente MD Family Provider Physician Primary Care Provider Specialty: Internal Medicine Address: [address] [place] [address], [address] Email: [email or web address] Leon DO Emergency Provider Physician Referring Provider Specialty: Emergency Medicine Address: [address] [place] [address], [id number] Email: [email or web address] Admit Provider Physician Attending Provider Specialty: Internal Medicine Address: [address] [place] [address], [id number] Email: [email or web address] Current Diagnoses Cerebral infarction, unspecified (12/12/22) Past Medical History (Last Reviewed 12/12/22 @ 17:16 by Gray Mayen DO) Cataracts, bilateral (Medical) Cellulitis of great toe (Medical) Cerebrovascular disease (Medical) Do not resuscitate (Medical) Esophageal ring (Medical) Essential hypertension (Medical) GERD without esophagitis (Medical) Gout (Medical) History of gout (Medical) History of non anemic vitamin B12 deficiency (Medical) Hypersomnia (Medical) Impaired fasting glucose (Medical) Insomnia, persistent (Medical) Medicare annual wellness visit, initial (Medical) Mixed hyperlipidemia (Medical) Obstructive sleep apnea of adult (Medical) Paronychia (Medical) Peripheral neuropathy (Medical) Snoring (Medical) Stroke (Medical ~08/1969) Ulcer of esophagus due to gastroesophageal reflux disease with complication (Medical) ST IP Initial Evaluation Report SHIFT NURSE MANAGER Adult Cognitive Linguistic Eval Start: 12/13/22 15:06 Freq: Status: Active Protocol: Document 12/13/22 15:07 CG (Rec: 12/13/22 15:35 CG [id number]) Adult Cognitive Linguistic Evaluation Session Time Visit Start Time 14:00 Visit Stop Time 15:30 Total Visit Minutes 90 Visit Information Visit Number 1 Referral Referring Provider Faheem/Suzanne Reason for Referral cognitive changes post CVA Setting Assessment Location Acute Care Visit Type Note Type Initial evaluation Next Note Type Next Note Type Discharge Summary Patient Information Identification Type Name Patient History Per H&P: This is an 82 year old male with PMH of prior CVA , HTN, YASIR, prior partial seizure (not on antiepileptics due to presumed provoked due to GI procedure per documentation) who presented to the emergency room with left sided weakness and facial droop when he awoke this morning. Patient states over the past few weeks he has actually noticed some balance issues and difficulty ambulating, with some dry mouth as well. He denies chest pain, shortness of breath, palpitations, leg edema, fever , chills. This morning he woke up with difficulty moving his left hand, and some left hand numbness, and left sided facial droop. This improved after about 45 minutes per the patient, and now only has facial droop on the left. In the emergency room, initial NIH was 5, given unclear last known normal he was not a TPA or interventional candidate. Telestroke service did recommend DAPT. He has no history of afib. CT imaging showed no hemorrhage, with CTA showing reduced P2 flow, not consitent with his current symptomatology. He was admitted for presumed stroke, MRI has been ordered. Pt was referred to ST due to evidence of cognitive changes, including score of 22/30 on the SLUMS and inability to complete trail making task with OT. At baseline, the pt lives at home with his , Tahira, and he completes IADLs including finances and medication management independently. Language(s) Spoken in the Home [place] Occupation Status Retired Hearing Hearing Level Impaired Auditory History Needs increased volume Previous Therapy Previous Speech-Language Therapy No Subjective Patient Report Pt was seated upright on window bench in hospital room upon ST entry to the room. He was alert, oriented, pleasant , and cooperative. He stated that he had just woken up from a nap but was still fatigued. Mental Status Alert,Responsive,Cooperative Assessment Oral Motor Examination Completed No: WFL per informal observation Informal Assessment Receptive Language Normal Yes Expressive Language Normal Yes Pragmatic Language Normal Yes Speech Normal Yes Cognition Normal No: Mild impairment Cognitive Impairment(s) Executive functioning,Problem solving Formal Assessment Results SHIFT NURSE MANAGER administered portions of [employer] Safety Evaluation, which asks safety awareness questions related to functional tasks in and around the home and community. The pt answered 90% of problem solving questions correctly, and was also able to complete basic mental math problems correctly without difficulty. He demonstrated very mild problem solving difficulties in about 10% of questions. Findings/Results Language Function Within functional limits Cognitive Function Mildly impaired Findings Pt presents with mildly impaired problem solving/ executive functioning which may have a mild impact on his ability to independently complete IADLs. Suggest continuing to monitor for cognitive changes and consider a more in-depth outpatient or home health assessment for cognition. Based on discussion with patient, there are multiple external stressors which may also be contributing to cognitive difficulties due to stress. The pt reports a recent cancer diagnosis of a family member in addition to recently opening up their home to a long-time friend in need of assistance. Additionally, the pt states he is financially responsible for his brother, who is frequently in and out of skilled nursing. Given these social stressors, the pt 's routine and sleep schedule may be disrupted and it is possible this has an effect on cognition. However, given the pt's recent CVA and age, cognition should be closely monitored for signs of worsening impairment. Pt was agreeable to having his assist with IADLs after discharge due to his recent CVA. He also states he and his have support from friends in their bapt[employer] community. Cognitive Communication Deficits Self-awareness of Cognitive- Situational awareness ( Communication Deficits recognition of problem in context;in real time) Impact on Functioning Activity Limits/Particip.Rest. Mild: Community Safety Risks Mod: Being Left Alone at Home Reacting to Emergency Managing Medication Traveling Alone in Community Prognosis Prognosis Good Based on Cognitive status,Family support Comment high PLOF Plan of Care Speech-Language Treatment No Patient/Caregiver Education Described results of evaluation,Patient expressed understanding of evaluation Discharge Recommendations Home
[2022-12-13] MEDS: ATORVASTATIN 20 MG TABLET 80 MG PO (20:54)
--- NOTE | 2022-12-14 00:18 | PC.NURSE ---
Addendum entered by Ana Laura Ramírez R.N. 12/14/22 06:53: Patient was able to fall asleep. Still tried to get up w/out calling. 1:1 sitter able to assist patient to the bathroom. Original Note: Patient was A&O at time of assessment. Around 2200 patient became increased confused and getting oob often. Patient is calm and cooperative but now 1:1 watch for safety. Gait is steady.
[2022-12-14 00:23] LABS: x Labcorp Estim. Avg Glu (eAG) 111 mg/dL (.); x Labcorp Hemoglobin A1c 5.5 % (4.8-5.6)
--- NOTE | 2022-12-14 01:59 | PC.NURSE ---
I became patient 1:1 sitter at 0030 on 12-14-22 and was told in report from [facility] Gloria Ayon that Pt. refuses to wear non-skid socks when ambulating to bathroom. Pt. seems to be steady on his feet but Pt. is somewhat confused.
[2022-12-14 03:00] VITALS: BP 154/77; PULSE 58; RESP 18; TEMP 36.1; O2SAT 96
[2022-12-14 05:31] LABS: Add Manual Diff / Slide Review NO; Basophils Absolute Auto 0 /uL (0-100); Basophils Percent Auto 0.5 % (0-2); Eosinophils Absolute Auto 400 /uL (0-450); Eosinophils Percent Auto 6.6 % (2-4); Hemoglobin 14.5 g/dL (13.5-17.5); Lymphocytes Absolute Auto 1700 /uL (1100-4500); Lymphocytes Percent Auto 28.5 % (25-40); Mean Corpuscular HGB Conc 33.6 % (30-36); Mean Corpuscular Hemoglobin 30.6 PG (26-34); Mean Corpuscular Volume 90.9 fL (80-100); Monocytes Absolute Auto 800 /uL (0-900); Monocytes Percent Auto 14.2 % (3-14); Neutrophils Absolute Auto 2900 /uL (1500-7000); Neutrophils Percent Auto 50.2 % (50-75); Platelet Count 169 X10^3/uL (150-400); Red Blood Cell Count 4.73 X10^6/uL (4.5-5.9); Red Cell Distribution Width 14.1 % (11.6-14.8); White Blood Cell Count 5.8 X10^3/uL (4.5-11.0)
[2022-12-14 05:45] LABS: BUN Creatinine Ratio 22.9 (6-22); Blood Urea Nitrogen 19 mg/dL (9-20); Calcium 8.8 mg/dL (8.4-10.2); Carbon Dioxide 29 mmol/L (22-32); Chloride 105 mmol/L (98-107); Estimated Glomerular Filt Rate > 60 mL/min (>60); Glucose 92 mg/dL (80-110); HEMOLYSIS < 15 (0-50); Potassium 3.8 mmol/L (3.4-5.1); Sodium 139 mmol/L (137-145)
[2022-12-14 07:30] VITALS: BP 155/79; PULSE 62; RESP 19; TEMP 36.3; O2SAT 95
[2022-12-14 07:50] VITALS: O2SAT 95
[2022-12-14] MEDS: CLOPIDOGREL 75 MG TABLET PO (09:13)
[2022-12-14] MEDS: ASPIRIN EC 81 MG TABLET PO (09:13)
[2022-12-14] MEDS: carvediloL 12.5 MG TABLET 25 MG PO (09:14)
[2022-12-14] MEDS: ENOXAPARIN 40 MG/0.4 ML SYRINGE SUBCUT (09:14)
[2022-12-14 11:00] VITALS: BP 142/66; PULSE 57; RESP 18; TEMP 36.2; O2SAT 96
--- NOTE | 2022-12-14 12:25 | PM.DS.1 ---
History of Present Illness History of Present Illness Chief complaint: fell T-1/ droop on one side of face/sleepy Narrative: 82 year old male with PMH of prior CVA, HTN, YASIR, prior partial seizure (not on antiepileptics due to presumed provoked due to GI procedure per documentation) who presented to the emergency room with left sided weakness and facial droop when he awoke this morning. Patient states over the past few weeks he has actually noticed some balance issues and difficulty ambulating, with some dry mouth as well. He denies chest pain, shortness of breath, palpitations, leg edema, fever, chills. This morning he woke up with difficulty moving his left hand, and some left hand numbness, and left sided facial droop. This improved after about 45 minutes per the patient, and now only has facial droop on the left. In the emergency room, initial NIH was 5, given unclear last known normal he was not a TPA or interventional candidate. Telestroke service did recommend DAPT. He has no history of afib. CT imaging showed no hemorrhage, with CTA showing reduced P2 flow, not consitent with his current symptomatology. He was admitted for presumed stroke, MRI has been ordered. Discharge Providers Provider Date of admission: 12/12/22 15:28 Discharge Date: 12/14/22 Primary care physician: Valente Puente MD Consults: 12/12/22 16:25 Consult to Occupational Therapy Evaluate & Treat Comment: Physician Instructions: Evaluate and treat Consult to Physical Therapy Evaluate & Treat Comment: Physician Instructions: Evaluate and Treat 12/13/22 12:12 Consult to Speech Therapy Evaluate & Treat Comment: Physician Instructions: Evaluate and treat Discharge provider: Boubacar Palacios MD Summary Hospital Course Discharge Diagnosis: 1. Acute ischemic CVA, rt thalamic 2. Diplopia 3. Acute metabolic encephalopathy 4. Hypertension 5. YASIR TTE: Interpretation Summary The ejection fraction is estimated to be 55-60%. There are no obvious focal wall motion abnormalities noted but poor endocardial definition reduces the sensitivity for the detection of such. There is mild aortic regurgitation. The ascending aorta is mildly enlarged. There is no Doppler evidence for an interatrial shunt. PROCEDURE:? MR HEAD/BRAIN WO CON ? INDICATIONS:? L hand weakness ? TECHNIQUE:? Non-contrast axial T1 spin echo, axial T2 fast spin echo, sagittal and axial FLAIR, coronal T2 fast spin echo, axial gradient echo, axial diffusion and ADC through the brain.? ? COMPARISON:? [facility], CT, CT ANGIO HEAD AND NECK, 12/12/2022, 13:29.? [facility], CT, CT HEAD/BRAIN WO CON, 12/12/2022, 13:20.? [facility], CT, CT HEAD/BRAIN WO CON, 11/09/2017, 11:29.? [facility], MR, BRAIN WITHOUT CONTRAST, 06/22/2007, 7:48. ? FINDINGS:? Image quality:? Excellent.? ? CSF spaces:? Ventricles appear symmetric in size and shape.? Basal cisterns are patent.? 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 ? Brain:? There is a focal infarction seen involving the right anterior thalamus, with increased diffusion-weighted signal and decreased T1 weighted signal.? Mildly increased FLAIR signal can be seen at this site. ? No intracranial bleeds or mass effects.? There is cerebral volume loss for age.? There are periventricular and deep white matter chronic small vessel ischemic changes.? Brainstem appears normal.? No chronic ischemic insults.? Normal intravascular flow voids are present.? ? Skull and face:? Calvarial bone marrow is normal in signal.? Orbits are normal.? Note is made of bilateral lens replacements. ? Sinuses:? There is focal mucosal thickening involving the left maxillary sinus, which is near completely opacified.? Milder mucosal thickening can be seen elsewhere within the paranasal sinuses. ? ? ? IMPRESSION:? There is a subacute infarction along the anterior right thalamus. ? ? ? Additional findings:? Focal left maxillary sinus disease ? ? Dictated by: Klaus Nichols M.D. on 12/12/2022 at 18:30 ? ? Approved by: Klaus Nichols M.D. on 12/12/2022 at? PROCEDURE:? CT ANGIO HEAD AND NECK ? INDICATIONS:? L sided facial droop ? TECHNIQUE:? After the administration of intravenous contrast, 1 mm thick sections acquired from the aortic arch through the [place].? 3-dimensional fkhdnfs-aztvsfsig-hsxrbmlull (MIP) and/or volume rendering reformats were acquired of the central intracranial vasculature and neck separately. For radiation dose reduction, the following was used:? automated exposure control, adjustment of mA and/or kV according to patient size.? ? COMPARISON:? [facility], MR, ANGIOGRAM NECK WITH CONTRAST, 06/22/2007, 8:06.? [facility], MR, BRAIN W&WO CONTRAST, 07/29/2017, 16:30.? [facility], CT, CT HEAD/BRAIN WO CON, 11/09/2017, 11:29.? [facility], CT, CT HEAD/BRAIN WO CON, 12/12/2022, 13:20. ? FINDINGS:? Image quality:? Diagnostic.? ? BRAIN:? CSF spaces:? Ventricles are normal in size and shape.? Basal cisterns are patent.? No extra-axial fluid collections.? ? Brain:? No midline shift.? No intracranial bleeds or masses.? Muro-white matter interface appears intact.? ? Skull and face:? In this patient with this given history, scrutiny is given to the course of the left facial nerve, including within the parotid gland.? The limits of this standard protocol CT study, no abnormality of the left facial nerve is detected.? Calvarium and facial bones appear intact, without suspicious lesions.? Orbits appear normal.? ? Sinuses:? Sinuses and mastoids are clear.? ? HEAD CT ANGIOGRAPHY:? Anterior circulation:? Intracranial internal carotid arteries demonstrate generalized atherosclerotic irregularity, with up to 50% narrowing on each side.? The flow within the paired anterior cerebral arteries is normal and symmetric.? The flow within the middle cerebral arteries is normal and symmetric.? The anterior communicating artery is seen.? No aneurysms are seen.? ? Posterior circulation:? Visualized portions of the vertebral arteries demonstrate normal caliber, and join to form a normal appearing basilar artery.? Asymmetric flow is seen within the posterior cerebral arteries, which is greatly reduced on the right beginning at the level of the P2 segment.? No aneurysms are seen.? ? NECK CT ANGIOGRAPHY:? Carotid system:? The great vessels demonstrate a conventional anatomy as they arise from the aortic arch.? The origins of the common carotid arteries appear patent.? The common carotid arteries demonstrate normal caliber and courses.? The bifurcation regions demonstrate atherosclerotic irregularity and calcification, with approximately 50% narrowing involving origin of right internal carotid artery and no significant stenosis seen involving the left internal carotid artery. The more distal internal carotid arteries demonstrate normal course and caliber.? ? Posterior circulation:? There is focal calcification seen involving the origin of the left vertebral artery, with approximately 50% narrowing at this site.? The origin of the right vertebral artery is within normal limits.? The more superior extracranial portions of both vertebral arteries otherwise demonstrate normal courses and calibers.? The left vertebral artery is dominant to the right.? ? Soft tissues:? Visualized neck soft tissues demonstrate no suspicious abnormalities.? ? Bones:? No suspicious bony lesions.? Visualized cervical spine appears normally aligned.? Relatively prominent cervical spine degenerative change can be seen. ? ? IMPRESSION:? Greatly reduced flow seen within the right P2 segment. ? There is approximately 50% narrowing seen involving the origin of the left vertebral artery. ? Within the arteries of the neck, no additional hemodynamically significant stenosis can be seen. ? ? If there is strong clinical suspicion for an acute stroke, please consider a brain MRI for further evaluation, as it is more sensitive (assuming that there is no contraindication to MRI). ? ? ? Any quantitative measurements of stenosis were performed using NASCET criteria.? ? ? Dictated by: Klaus Nichols M.D. on 12/12/2022 at 12:50 ? ? Approved by: Klaus Nichols M.D. on 12/12/2022 at 12:55 ? Hospital Course: Patient was admitted for acute CVA. MRI showed sub-acute rt thalamic stroke c/w presenting neuro findings of left side weakness. He had complete recovery as assessed by PT. There is some residual mild left facial droop which spouse states has been present since his prior stroke. CTA showed sev narrowed P2 segment but otherwise no hemodyn sig stenosis. ECHO was nl except mild AR and mild dilation ascending aorta. Tele did not reveal any afib episodes. He did drop HR to 40's in sinus at during sleep and not during the day which is probably acceptable on his carvedilol. Consider outpatient Zio patch or equivalent to r/o occult afib or high degree AVB. OT was concerned about cognitive testing but he did fairly well with ST cog eval, and ST did not recommend further outpt follow up with ST. Pt has been independent and active up until now. Last night he was sundowning and a bit confused this morning (couldn't quite figure out he was in hospital) but otherwise stable. However, I felt it would be in his best interest to discharge home with close supervision by his spouse. Also noted diplopia which he has at baseline without his glasses but now present with glasses on. Rec monitoring and to see his eye doctor if necessary. Status at Discharge Cognitive/behavioral status at discharge: confused Overall status at discharge: patient is progressing back to baseline Time Spent with Patient Time spent: Greater than 30 minutes Exam Vital Signs (past 8 hours): - 12/14/22 07:30 12/14/22 11:00 12/14/22 07:50 Temperature 97.4 F L 97.1 F L Pulse Rate 62 57 L Respiratory Rate 19 18 Blood Pressure 155/79 H 142/66 H Pulse Oximetry 95 96 95 Oxygen Delivery Method Room Air Oxygen Flow Rate 0 0 Oxygen Delivery Method Room Air Oxygen Flow Rate 0 Narrative Exam Narrative: gen: alert, sitting in chair, cooperative Neuro: oriented to person, confused, speech not impaired LUE and LLE strength intact and = to rt side Objective Labs 12/14/22 04:30 12/14/22 04:30 Labs: Laboratory Results - last 24 hr 12/13/22 12/14/22 12/14/22 05:20 04:30 04:30 WBC 5.8 RBC 4.73 Hgb 14.5 Hct 43.0 MCV 90.9 MCH 30.6 MCHC 33.6 RDW 14.1 Plt Count 169 Neut % (Auto) 50.2 Lymph % (Auto) 28.5 [place] % (Auto) 14.2 H Eos % (Auto) 6.6 H Baso % (Auto) 0.5 Neut # (Auto) 2900 Lymph # (Auto) 1700 [place] # (Auto) 800 Eos # (Auto) 400 Baso # (Auto) 0 Sodium 139 Potassium 3.8 Chloride 105 Carbon Dioxide 29 BUN 19 Creatinine 0.83 Estimated GFR > 60 BUN/Creatinine Ratio 22.9 H Glucose 92 Hgb A1c (Ref Lab) 5.5 Estim Average Glucose 111 Calcium 8.8 Magnesium 2.0 PFSH Medical History Cataracts, bilateral Cellulitis of great toe Cerebrovascular disease Do not resuscitate Esophageal ring Essential hypertension GERD without esophagitis Gout History of gout History of non anemic vitamin B12 deficiency Hypersomnia Impaired fasting glucose Insomnia, persistent Medicare annual wellness visit, initial Mixed hyperlipidemia Obstructive sleep apnea of adult Paronychia Peripheral neuropathy Snoring Stroke (~08/1969) Ulcer of esophagus due to gastroesophageal reflux disease with complication Surgical History Anesthesia History of abdominal surgery (~06/2015) History of cataract removal with insertion of prosthetic lens (~01/03/22) History of throat surgery (~06/2015) Family History Mother Cancer Congestive heart failure Brother History of blood clots Brother Suicide Grandfather Stomach disorder Grandmother History of heart disease Mental health problem Grandmother Stroke Social History marital status: details: noemí Hoffmann, lives in [place] household members: spouse lives independently: Yes caregiver/support person: No housing: house Smoking Status: Never smoker alcohol intake: current Discharge Plan Discharge Plan Patient Disposition: Home Provider Discharge Comment: You were diagnosed with right thalamic stroke. I have added clopidogrel as a blood thinner to take with your low dose aspirin. You should stop the aspirin in 3 weeks and continue on clopidogrel for long-term anti-platelet therapy. You should have someone with you at all times for the time being until your mental and physical functioning is back to normal. Please see dr Puente for follow up within 1 week of hospital discharge. Discharge orders & Medications Prescriptions: New clopidogrel 75 mg Tablet 75 mg PO DAILY Qty: 30 0RF Continued carvedilol 25 mg tablet 25 mg PO BID Qty: 180 3RF Rx Instructions: must administer with a meal/food minoxidil 10 mg tablet 10 mg PO DAILY Qty: 90 3RF rosuvastatin 20 mg tablet See Rx Instructions .ROUTE .COMPLEX Qty: 90 3RF Dose Instruction: TAKE 1 TABLET EVERY DAY Rx Instructions: TAKE 1 TABLET EVERY DAY aspirin 81 mg 81 mg PO DAILY Follow up/Referrals: Valente Puente MD [Primary Care Provider] - Diet/Activity/Treatments Diet: Regular Visit Report/Discharge Packet Instructions: DI for Stroke-Ischemic, How to Prevent Falls, DI for Double Vision Stand Alone Forms: Patient Portal/API, Stroke Signs & Symptoms Discharge Data Primary Care Provider: Valente Puente V Quality VTE Deep Vein Thrombosis/Pulmonary Embolism Present on Admission: No
== END 2022-12-14 12:33 | disposition home or self-care (01) | DRG 64 ==
LOC: ED 13:13 → AC 15:29
PROVIDERS: Admitting Provider Internal Medicine; Emergency Provider Emergency Medicine; Family Provider Internal Medicine; PCP Internal Medicine; Referring Provider Emergency Medicine; Visit Provider Internal Medicine
DX: I63.9 Cerebral infarction, unspecified (principal); G93.41 Metabolic encephalopathy; I69.352 Hemiplegia and hemiparesis following cerebral infarction affecting left dominant side; R29.705 NIHSS score 5; R29.701 NIHSS score 1; I10 Essential (primary) hypertension; G47.33 Obstructive sleep apnea (adult) (pediatric); H53.2 Diplopia; E78.2 Mixed hyperlipidemia
CPT/HCPCS: 36415; 70450; 70496; 70498; 70551; 80048; 80053; 80061; 83036; 83690; 83735; 84443; 85025; 92523; 93005; 93306; 97162; 97166; 97530; 99284; 99285; J1650

== ENCOUNTER → 2022-12-26 09:40 | Outpatient (CLI) | payer MEDICARE, OTHER, SELFPAY ==
[2022-12-12 16:26] VITALS: BMI 23.7
== END ==
PROVIDERS: Family Provider Internal Medicine; PCP Internal Medicine; Referring Provider Internal Medicine; Visit Provider Internal Medicine
DX: I63.9 Cerebral infarction, unspecified (principal)
CPT/HCPCS: 93246

== ENCOUNTER 2023-08-10 10:03 | Emergency (ER) | payer MEDICARE, OTHER, SELFPAY ==
[2022-12-12 16:26] VITALS: BMI 23.7
[2023-08-10] VITALS (8 sets, daily range): BP systolic 142–168; BP diastolic 68–81; PULSE 60–78; RESP 14–22; TEMP 36.5; O2SAT 94–99; BMI 25.9
--- NOTE | 2023-08-10 10:08 | DI.CT.S_ITS ---
PROCEDURE: CT ANGIO HEAD AND NECK INDICATIONS: facial droop dizzy TECHNIQUE: After the administration of intravenous contrast, 1 mm thick sections acquired from the aortic arch through the [place]. 3-dimensional xpgnjur-dmbgaaukj-vcqitzittr (MIP) and/or volume rendering reformats were acquired of the central intracranial vasculature and neck separately. For radiation dose reduction, the following was used: automated exposure control, adjustment of mA and/or kV according to patient size. COMPARISON: [facility], CT, CT ANGIO HEAD AND NECK, 12/12/2022, 13:29. [facility], CT, CT HEAD/BRAIN WO CON, 12/12/2022, 13:20. [facility], MR, MR HEAD/BRAIN WO CON, 12/12/2022, 18:32. [facility], CT, CT STROKE, 08/10/2023, 10:14. FINDINGS: Image quality: Limited by bolus timing, with venous contamination. BRAIN: CSF spaces: Ventricles are normal in size and shape. Basal cisterns are patent. No extra-axial fluid collections. Brain: No significant abnormality of the brain can be seen. Skull and face: Calvarium and facial bones appear intact, without suspicious lesions. Orbits appear normal. Sinuses: Focal left maxillary sinus disease is seen. HEAD CT ANGIOGRAPHY: Anterior circulation: Intracranial internal carotid arteries are normal in size and flow. There is a diminutive right A1 segment, with a corresponding robust left A1 segment. This is considered to be a normal developmental variant of the [place], of typically no clinical consequence. The flow within the paired anterior cerebral arteries is otherwise normal and symmetric. The flow within the middle cerebral arteries is normal and symmetric. The anterior communicating artery is seen. No aneurysms are seen. Posterior circulation: Visualized portions of the vertebral arteries demonstrate normal caliber, and join to form a normal appearing basilar artery. Is focal narrowing can be seen involving the right P1 segment, as on series 6, image 103. There is overall decreased flow within the right posterior cerebral artery compared to the left. No aneurysms are seen. NECK CT ANGIOGRAPHY: Carotid system: The great vessels demonstrate a conventional anatomy as they arise from the aortic arch. The origins of the common carotid arteries appear patent. The common carotid arteries demonstrate normal caliber and courses. The bifurcation regions demonstrate atherosclerotic irregularity and calcification. There is 50% narrowing seen involving the right proximal internal carotid artery. No significant stenosis can be seen on the left. The more distal internal carotid arteries demonstrate normal course and caliber. Posterior circulation: There is 50% narrowing involving the origin of the left vertebral artery. The right vertebral artery is within normal limits. The more superior extracranial portions of both vertebral arteries also demonstrate normal courses and calibers. The left vertebral artery is dominant to the right. Soft tissues: Visualized neck soft tissues demonstrate no suspicious abnormalities. Patchy ground-glass opacities can be seen at the lung apices. Bones: No suspicious bony lesions. Visualized cervical spine appears normally aligned. At least moderate cervical spine degenerative change is seen. IMPRESSION: Focal narrowing is again seen involving the right P1 segment, with decreased flow within the right posterior cerebral artery compared to the left. The appearance is overall improved compared to the prior head and neck CT angiogram, however. 50% narrowing seen involving the origin of the right internal carotid artery. 50% narrowing of the origin of the left vertebral artery. Patchy ground-glass opacities can be seen involving the lung apices. Please consider pulmonary edema. Additional findings: [place]-Vfmlbt developmental anomalies At least moderate cervical spine degenerative change Any quantitative measurements of stenosis were performed using NASCET criteria. Dictated by: Klaus Nichols M.D. on 08/10/2023 at 9:44 Approved by: Klaus Nichols M.D. on 08/10/2023 at 9:49
--- NOTE | 2023-08-10 10:08 | DI.CT.S_ITS ---
PROCEDURE: CT STROKE INDICATIONS: facial droop dizzy TECHNIQUE: Noncontrast 4.5 mm thick angled axial sections acquired from the foramen magnum to the vertex, with coronal reformats. For radiation dose reduction, the following was used: automated exposure control, adjustment of mA and/or kV according to patient size. COMPARISON: [facility], CT, CT HEAD/BRAIN WO CON, 11/09/2017, 11:29. [facility], CT, CT HEAD/BRAIN WO CON, 12/12/2022, 13:20. [facility], MR, MR HEAD/BRAIN WO CON, 12/12/2022, 18:32. [facility], CT, CT ANGIO HEAD AND NECK, 08/10/2023, 10:14. [facility], CT, CT ANGIO HEAD AND NECK, 12/12/2022, 13:29. FINDINGS: Image quality: Mild streak artifact can be seen through the skull base. CSF spaces: Basal cisterns are patent. No extra-axial fluid collections. The ventricles are symmetric in size and shape. Brain: No intracranial bleeds or masses. There is cerebral volume loss for age, with resultant ventricular and sulcal prominence. There are periventricular and deep white matter chronic small vessel ischemic changes. There is intracranial internal carotid artery atherosclerosis. Skull and face: Calvarium and visualized facial bones appear intact, without suspicious lesions. In this patient with this given history, scrutiny is given to the courses of the facial nerves, including within the parotid glands. No focal abnormalities are seen. Sinuses: Focal mucosal thickening can be seen within the left maxillary sinus. The paranasal sinuses are otherwise relatively clear No abnormal fluid is seen within the mastoid air cells. IMPRESSION: No acute intracranial hemorrhage is seen. No acute intracranial pathology. Additional findings: Focal left maxillary sinus disease Note: Case discussed by telephone with Dr. Whalen at 10:32 a.m. [place] time on August 10, 2023. This study fulfills neurological imaging criteria for inclusion or exclusion of acute stroke therapies based on available published neurological guidelines. Dictated by: Klaus Nichols M.D. on 08/10/2023 at 9:30 Approved by: Klaus Nichols M.D. on 08/10/2023 at 9:34
--- NOTE | 2023-08-10 10:13 | DI.RAD.S_ITS ---
PROCEDURE: XR CHEST 1V INDICATIONS: chest pain TECHNIQUE: One view of the chest was acquired. COMPARISON: [facility], CT, CT STROKE, 08/10/2023, 10:14. [facility], CT, CT ANGIO HEAD AND NECK, 08/10/2023, 10:14. [facility], CR, CHEST 2 VIEW, 12/12/2015, 10:24. FINDINGS: Surgical changes and devices: None. Lungs and pleura: Low lung volumes are noted. This causes a crowded appearance to the lung markings and limits evaluation. Mild generalized interstitial prominence can be seen. No superimposed focal infiltrates can be seen. No large pneumothorax or large pleural effusions are seen. Mediastinum: Mediastinal contours appear normal. Heart size is normal. Bones and chest wall: No suspicious bony lesions. Age-appropriate bony degenerative changes are seen. Overlying soft tissues appear unremarkable. IMPRESSION: Low lung volumes with generalized interstitial prominence. Please consider artifact versus mild pulmonary edema. If clinically appropriate, a short-term followup chest series (with PA and lateral views) performed in deep inspiration is suggested for further evaluation. Dictated by: Klaus Nichols M.D. on 08/10/2023 at 10:15 Approved by: Klaus Nichols M.D. on 08/10/2023 at 10:16
[2023-08-10 10:21] LABS: Add Manual Diff / Slide Review NO; Basophils Absolute Auto 100 /uL (0-100); Basophils Percent Auto 1.3 % (0-2); Eosinophils Absolute Auto 400 /uL (0-450); Eosinophils Percent Auto 7.7 % (2-4); Hematocrit 48.1 % (41-53); Lymphocytes Absolute Auto 1200 /uL (1100-4500); Lymphocytes Percent Auto 21.1 % (25-40); Mean Corpuscular HGB Conc 33.3 % (30-36); Mean Corpuscular Hemoglobin 30.3 PG (26-34); Mean Corpuscular Volume 90.9 fL (80-100); Monocytes Absolute Auto 900 /uL (0-900); Monocytes Percent Auto 15.3 % (3-14); Neutrophils Absolute Auto 3100 /uL (1500-7000); Neutrophils Percent Auto 54.6 % (50-75); Platelet Count 212 X10^3/uL (150-400); Red Blood Cell Count 5.29 X10^6/uL (4.5-5.9); Red Cell Distribution Width 14.1 % (11.6-14.8); White Blood Cell Count 5.6 X10^3/uL (4.5-11.0)
[2023-08-10 10:28] LABS: INR 1.1 (0.9-1.3); Prothrombin Time 12.8 SECONDS (9.4-12.5)
[2023-08-10 10:31] LABS: PTT Partial Thromboplastin Tim 32 SECONDS (25.1-36.5)
[2023-08-10 10:33] LABS: Alanine Aminotransferase 15 IU/L (<50); Albumin 4.2 g/dL (3.5-5.0); Albumin Globulin Ratio 1.4 (1.0-2.8); Alkaline Phosphatase 42 U/L (38-126); Aspartate Aminotransferase 19 IU/L (17-59); BUN Creatinine Ratio 21.4 (6-22); Bilirubin Total 0.9 mg/dL (0.2-1.3); Blood Urea Nitrogen 21 mg/dL (9-20); Calcium 9.4 mg/dL (8.4-10.2); Carbon Dioxide 28 mmol/L (22-32); Chloride 107 mmol/L (98-107); Creatine Kinase 70 U/L (55-170); Estimated Glomerular Filt Rate > 60 mL/min (>60); Ethanol (ETOH) < 10 mg/dL; Globulin 2.9 g/dL (1.7-4.1); Glucose 115 mg/dL (80-110); HEMOLYSIS 17 (0-50); Lipase 36 U/L (23-300); Potassium 4.3 mmol/L (3.4-5.1); Sodium 140 mmol/L (137-145); Total Protein 7.1 g/dL (6.3-8.2)
[2023-08-10] MEDS: SODIUM CHLORIDE 0.9% 1,000 ML 150 ML IV (10:36)
[2023-08-10 10:44] LABS: Troponin I < 0.012 ng/mL (0.01-0.034)
--- NOTE | 2023-08-10 10:46 | ED_ITS ---
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 states that he wears about 4 or 5 layers of clothing and that the room was quite packed. He had eaten something for breakfast and was sitting down. No new numbness tingling or weakness. No chest pain. He is unable to open his eyes. He has no weakness. He is persistent left facial droop which is likely old. No significant speech difficulties. Last known well 9:00 a.m. On Anticoagulants: Yes (Plavix) Related Data Home Medications Medication Instructions Recorded Confirmed aspirin 81 mg capsule 81 mg PO DAILY 04/01/23 04/01/23 Previous Rx's Medication Instructions Recorded clopidogrel 75 mg tablet 75 mg PO DAILY #90 tabs 12/17/22 carvedilol 25 mg tablet 25 mg PO BID #180 tabs 01/14/23 minoxidil 10 mg tablet 10 mg PO DAILY #90 tabs 01/14/23 rosuvastatin 20 mg tablet 20 mg PO DAILY #90 tabs 01/14/23 Allergies Allergy/AdvReac Type Severity Reaction Status Date / Time indomethacin [INDOMETHACIN] Allergy Severe COMA Verified 04/01/23 07:26 diazepam [DIAZEPAM] Allergy Unknown HEART Verified 04/01/23 07:26 FLUTTER amlodipine AdvReac Intermediate Verified 04/01/23 07:26 clonidine AdvReac Intermediate exercise Verified 04/01/23 07:26 intolerance colchicine AdvReac Intermediate neuropathy Verified 04/01/23 07:26 hydrochlorothiazide AdvReac Intermediate Verified 04/01/23 07:26 lisinopril AdvReac Intermediate Verified 04/01/23 07:26 olmesartan [From Benicar] AdvReac Intermediate Verified 04/01/23 07:26 pregabalin [From Lyrica] AdvReac Intermediate lethargy Verified 04/01/23 07:26 Review of Systems Hematologic/Lymphatic On Anticoagulants: Yes (Plavix) Patient History Medical History Mild cognitive impairment Do not resuscitate Impaired fasting glucose History of non anemic vitamin B12 deficiency History of gout GERD without esophagitis Mixed hyperlipidemia Essential hypertension Cerebrovascular disease Stroke (~08/1969) Peripheral neuropathy Gout Cataracts, bilateral Esophageal ring Hypersomnia Ulcer of esophagus due to gastroesophageal reflux disease with complication Paronychia Cellulitis of great toe Snoring Insomnia, persistent Obstructive sleep apnea of adult Surgical History Anesthesia History of cataract removal with insertion of prosthetic lens (~01/03/22) History of abdominal surgery (~06/2015) History of throat surgery (~06/2015) Family History Mother Cancer Congestive heart failure Brother History of blood clots Brother Suicide Grandfather Stomach disorder Grandmother History of heart disease Mental health problem Grandmother Stroke Social History marital status: details: noemí Hoffmann, lives in [place] household members: spouse lives independently: Yes caregiver/support person: No housing: house Smoking Status: Never smoker alcohol intake: current Smoking Status: Never smoker alcohol intake frequency: a few times a week Substance Use Type: does not use Exam Initial Vital Signs Initial Vital Signs: Vital Signs Pulse Rate 67 08/10/23 10:11 Respiratory Rate 15 08/10/23 10:11 Pulse Oximetry 97 08/10/23 10:11 GENERAL: Alert 82-year-old male and in [no acute] distress. HEENT: Head atraumatic,EOMI, pupils reactive, face symmetric, [moist] mucous membranes CARDIOVASCULAR: Regular rate and rhythm without murmurs, rubs or gallops. RESPIRATORY: Breath sounds equal bilaterally, no wheezes rales or rhonchi. ABDOMEN: Soft, nontender. Normoactive bowel sounds all 4 quadrants. No guarding or rebound. EXTREMITIES: Normal range of motion, no clubbing or edema. Neurovascularly intact NEUROLOGICAL: Alert and oriented x4.Normal gait and speech. Cranial nerves II through XII grossly intact. [Good amufsp-sh-bhja, good hdak-os-lnyn, strength equal bilaterally, no dysarthria or aphasia, sensation in tact to soft touch bilaterally, no visual changes, mild left facial droop] SKIN: Warm, dry, no laceration, no petechiae, no rashes or lesions. Scores NIH Stroke Scale Level of Conciousness: Alert, keenly responsive Ask month/age: Answers both questions correctly. Open/close eyes, close hand: Performs both tasks correctly Best gaze horizontal: Normal Visual telles: No visual loss Facial palsy: Minor paralysis, flattened nasolabial fold, asymmetry on smiling (left side chronic from prior CVA) Left arm drift: No drift for full 10 sec Right arm drift: No drift for full 10 sec Left leg drift: No drift for full 5 sec Right leg drift: No drift for full 5 sec Limb ataxia: Absent Sensory on face/arms/legs: Normal, no sensory loss Best language: No aphasia, normal Dysarthria: Normal Extinction or inattention: No abnormality Total NIH Stroke scale score: 1 Course Orders Ordered: ED Orders 08/10/23 10:[address] angio head and neck Stat 08/10/23 10:13 XR chest 1V Stat Complete Blood Count AUTO DIFF Stat Comprehensive Metabolic Panel Stat Ethanol (ETOH) Stat Lipase Stat PTT Partial Thromboplastin Estrada Stat Prothrombin Time INR Stat Troponin & CK Cardiac Panel Stat 08/10/23 10:38 COVID19 -Nasal RAPID Stat 08/10/23 10:40 EKG-12 Lead Stat 08/10/23 11:22 Urine Drug Screen, Rapid Stat Discontinued Medications Sodium Chloride (Normal Saline 0.9%) 1,000 mls @ 150 mls/hr IV CONT DANIELLA Last Admin: 08/10/23 10:36 Dose: 150 mls/hr Documented By: NIEVES Meclizine HCl (Meclizine Hcl 12.5 Mg Tablet) 25 mg PO NOW ONE Stop: 08/10/23 10:50 Last Admin: 08/10/23 11:03 Dose: 25 mg Documented By: NIEVES Vital Signs Vital signs: Vital Signs - 8 hr 08/10/23 10:11 08/10/23 10:13 08/10/23 10:35 Temperature 97.7 F Pulse Rate 67 68 66 Respiratory Rate 15 14 22 Blood Pressure 168/81 H Pulse Oximetry 97 99 96 Oxygen Delivery Method Room Air 08/10/23 10:36 08/10/23 10:36 08/10/23 10:45 Temperature Pulse Rate 65 62 Respiratory Rate 18 16 Blood Pressure 146/68 H Pulse Oximetry 96 95 Oxygen Delivery Method 08/10/23 11:00 08/10/23 11:00 08/10/23 11:15 Temperature Pulse Rate 64 78 Respiratory Rate 17 16 Blood Pressure 142/68 H Pulse Oximetry 94 95 Oxygen Delivery Method Room Air 08/10/23 11:30 08/10/23 11:30 Temperature Pulse Rate 60 Respiratory Rate 17 Blood Pressure 144/72 H Pulse Oximetry 95 Oxygen Delivery Method MDM - Neuro Symptoms/Deficit Lab Data 08/10/23 10:13 08/10/23 10:13 Labs: Lab Results 08/10/23 08/10/23 08/10/23 Range/Units 10:13 10:38 11:22 WBC 5.6 (4.5-11.0) X10^3/uL RBC 5.29 (4.5-5.9) X10^6/uL Hgb 16.0 (13.5-17.5) g/dL Hct 48.1 (41-53) % MCV 90.9 (80-100) fL MCH 30.3 (26-34) PG MCHC 33.3 (30-36) % RDW 14.1 (11.6-14.8) % Plt Count 212 (150-400) X10^3/uL Neut % (Auto) 54.6 (50-75) % Lymph % (Auto) 21.1 L (25-40) % Gilchrist % (Auto) 15.3 H (3-14) % Eos % (Auto) 7.7 H (2-4) % Baso % (Auto) 1.3 (0-2) % Neut # (Auto) 3100 (5056-5063) /uL Lymph # (Auto) 1200 (2521-6401) /uL Gilchrist # (Auto) 900 (0-900) /uL Eos # (Auto) 400 (0-450) /uL Baso # (Auto) 100 (0-100) /uL PT 12.8 H (9.4-12.5) SECONDS INR 1.1 (0.9-1.3) APTT 32 (25.1-36.5) SECONDS Sodium 140 (137-145) mmol/L Potassium 4.3 (3.4-5.1) mmol/L Chloride 107 (98-107) mmol/L Carbon Dioxide 28 (22-32) mmol/L BUN 21 H (9-20) mg/dL Creatinine 0.98 (0.66-1.25) mg/dL Estimated GFR > 60 (>60) mL/min BUN/Creatinine Ratio 21.4 (6-22) Glucose 115 H (80-110) mg/dL Calcium 9.4 (8.4-10.2) mg/dL Total Bilirubin 0.9 (0.2-1.3) mg/dL AST 19 (17-59) IU/L ALT 15 (<50) IU/L Alkaline Phosphatase 42 (38-126) U/L Total Creatine Kinase 70 (55-170) U/L Troponin I < 0.012 (0.01-0.034) ng/mL Total Protein 7.1 (6.3-8.2) g/dL Albumin 4.2 (3.5-5.0) g/dL Globulin 2.9 (1.7-4.1) g/dL Albumin/Globulin Ratio 1.4 (1.0-2.8) Lipase 36 (23-300) U/L U Opiates 300ng/mL cut Negative (Negative) Ur Oxycodone Screen Negative (Negative) Urine Methadone Screen Negative (Negative) Ur Barbiturates Screen Negative (Negative) U Tricyclic Antidepress Negative (Negative) Ur Phencyclidine Scrn Negative (Negative) Ur Amphetamines Screen Negative (Negative) U Methamphetamines Scrn Negative (Negative) Ur MDMA Scrn (Ecstasy) Negative (Negative) U Benzodiazepines Scrn Negative (Negative) Urine Cocaine Screen Negative (Negative) U Marijuana (THC) Screen Negative (Negative) Urine pH Normal (Normal) Urine Specific Minetto Normal (Normal) Ethyl Alcohol < 10 ( - 10) mg/dL Ur Creatinine Normal (Normal) SARS-CoV-2 (PCR) Negative (Negative) Point of Care Testing Glucose POC 107 Urine Dip Bedside Urine Glucose Negative Bedside Urine Bilirubin - Negative Bedside Urine Ketone - Negative Urine Specific Minetto 1.010 Bedside Urine Occult Blood - Negative Bedside Urine pH 6.5 Bedside Urine Protein - Negative Bedside Urine Urobilinogen - Negative Bedside Urine Nitrite - Negative Bedside Urine Leukocytes - Negative Esterase Imaging Data CT scan - head: Radiologist's Impression: PROCEDURE: CT STROKE INDICATIONS: facial droop dizzy TECHNIQUE: Noncontrast 4.5 mm thick angled axial sections acquired from the foramen magnum to the vertex, with coronal reformats. For radiation dose reduction, the following was used: automated exposure control, adjustment of mA and/or kV according to patient size. COMPARISON: [facility], CT, CT HEAD/BRAIN WO CON, 11/09/2017, 11:29. [facility], CT, CT HEAD/BRAIN WO CON, 12/12/2022, 13:20. [facility], MR, MR HEAD/BRAIN WO CON, 12/12/2022, 18:32. [facility], CT, CT ANGIO HEAD AND NECK, 08/10/2023, 10:14. [facility], CT, CT ANGIO HEAD AND NECK, 12/12/2022, 13:29. FINDINGS: Image quality: Mild streak artifact can be seen through the skull base. CSF spaces: Basal cisterns are patent. No extra-axial fluid collections. The ventricles are symmetric in size and shape. Brain: No intracranial bleeds or masses. There is cerebral volume loss for age, with resultant ventricular and sulcal prominence. There are periventricular and deep white matter chronic small vessel ischemic changes. There is intracranial internal carotid artery atherosclerosis. Skull and face: Calvarium and visualized facial bones appear intact, without suspicious lesions. In this patient with this given history, scrutiny is given to the courses of the facial nerves, including within the parotid glands. No focal abnormalities are seen. Sinuses: Focal mucosal thickening can be seen within the left maxillary sinus. The paranasal sinuses are otherwise relatively clear No abnormal fluid is seen within the mastoid air cells. IMPRESSION: No acute intracranial hemorrhage is seen. No acute intracranial pathology. Additional findings: Focal left maxillary sinus disease Note: Case discussed by telephone with Dr. Whalen at 10:32 a.m. [place] time on August 10, 2023. This study fulfills neurological imaging criteria for inclusion or exclusion of acute stroke therapies based on available published neurological guidelines. Dictated by: Klaus Nichols M.D. on 08/10/2023 at 9:30 Approved by: Klaus Nichols M.D. on 08/10/2023 at 9:34 CTA - brain/neck: Radiologist's Impression: PROCEDURE: CT ANGIO HEAD AND NECK INDICATIONS: facial droop dizzy TECHNIQUE: After the administration of intravenous contrast, 1 mm thick sections acquired from the aortic arch through the [place] of [place]. 3-dimensional [id number]-vzioiqkyi-lbcvrjgijx (MIP) and/or volume rendering reformats were acquired of the central intracranial vasculature and neck separately. For radiation dose reduction, the following was used: automated exposure control, adjustment of mA and/or kV according to patient size. COMPARISON: [facility], CT, CT ANGIO HEAD AND NECK, 12/12/2022, 13:29. [facility], CT, CT HEAD/BRAIN WO CON, 12/12/2022, 13:20. [facility], MR, MR HEAD/BRAIN WO CON, 12/12/2022, 18:32. [facility], CT, CT STROKE, 08/10/2023, 10:14. FINDINGS: Image quality: Limited by bolus timing, with venous contamination. BRAIN: CSF spaces: Ventricles are normal in size and shape. Basal cisterns are patent. No extra-axial fluid collections. Brain: No significant abnormality of the brain can be seen. Skull and face: Calvarium and facial bones appear intact, without suspicious lesions. Orbits appear normal. Sinuses: Focal left maxillary sinus disease is seen. HEAD CT ANGIOGRAPHY: Anterior circulation: Intracranial internal carotid arteries are normal in size and flow. There is a diminutive right A1 segment, with a corresponding robust left A1 segment. This is considered to be a normal developmental variant of the [place] of [place], of typically no clinical consequence. The flow within the paired anterior cerebral arteries is otherwise normal and symmetric. The flow within the middle cerebral arteries is normal and symmetric. The anterior communicating artery is seen. No aneurysms are seen. Posterior circulation: Visualized portions of the vertebral arteries demonstrate normal caliber, and join to form a normal appearing basilar artery. Is focal narrowing can be seen involving the right P1 segment, as on series 6, image 103. There is overall decreased flow within the right posterior cerebral artery compared to the left. No aneurysms are seen. NECK CT ANGIOGRAPHY: Carotid system: The great vessels demonstrate a conventional anatomy as they arise from the aortic arch. The origins of the common carotid arteries appear patent. The common carotid arteries demonstrate normal caliber and courses. The bifurcation regions demonstrate atherosclerotic irregularity and calcification. There is 50% narrowing seen involving the right proximal internal carotid artery. No significant stenosis can be seen on the left. The more distal internal carotid arteries demonstrate normal course and caliber. Posterior circulation: There is 50% narrowing involving the origin of the left vertebral artery. The right vertebral artery is within normal limits. The more superior extracranial portions of both vertebral arteries also demonstrate normal courses and calibers. The left vertebral artery is dominant to the right. Soft tissues: Visualized neck soft tissues demonstrate no suspicious abnormalities. Patchy ground-glass opacities can be seen at the lung apices. Bones: No suspicious bony lesions. Visualized cervical spine appears normally aligned. At least moderate cervical spine degenerative change is seen. IMPRESSION: Focal narrowing is again seen involving the right P1 segment, with decreased flow within the right posterior cerebral artery compared to the left. The appearance is overall improved compared to the prior head and neck CT angiogram, however. 50% narrowing seen involving the origin of the right internal carotid artery. 50% narrowing of the origin of the left vertebral artery. Patchy ground-glass opacities can be seen involving the lung apices. Please consider pulmonary edema. Additional findings: Ajconl-dc-Ppxpum developmental anomalies At least moderate cervical spine degenerative change Any quantitative measurements of stenosis were performed using NASCET criteria. Dictated by: Klaus Nichols M.D. on 08/10/2023 at 9:44 Approved by: Klaus Nichlos M.D. on 08/10/2023 at 9:49 Chest x-ray: Radiologist's Impression: PROCEDURE: XR CHEST 1V INDICATIONS: chest pain TECHNIQUE: One view of the chest was acquired. COMPARISON: [facility], CT, CT STROKE, 08/10/2023, 10:14. [facility], CT, CT ANGIO HEAD AND NECK, 08/10/2023, 10:14. [facility], CR, CHEST 2 VIEW, 12/12/2015, 10:24. FINDINGS: Surgical changes and devices: None. Lungs and pleura: Low lung volumes are noted. This causes a crowded appearance to the lung markings and limits evaluation. Mild generalized interstitial prominence can be seen. No superimposed focal infiltrates can be seen. No large pneumothorax or large pleural effusions are seen. Mediastinum: Mediastinal contours appear normal. Heart size is normal. Bones and chest wall: No suspicious bony lesions. Age-appropriate bony degenerative changes are seen. Overlying soft tissues appear unremarkable. IMPRESSION: Low lung volumes with generalized interstitial prominence. Please consider artifact versus mild pulmonary edema. If clinically appropriate, a short-term followup chest series (with PA and lateral views) performed in deep inspiration is suggested for further evaluation. Dictated by: Klaus Nichols M.D. on 08/10/2023 at 10:15 ECG Data Interpretation: Normal sinus rhythm rate 66 NH interval 166 QRS [address] changes MDM Narrative Medical decision making narrative: Patient is a 82-year-old male history of CVA with left facial droop presents today with sudden onset dizziness. He was standing in [place] with 4 layers of clothing on got sudden onset of dizziness lasted for about an hour and now seems to have resolved. Initially was called as a code stroke with left facial droop but that was found to be chronic. His symptoms actually improved without any sort of intervention. Imaging has been reviewed no intracranial hemorrhage. CTA does show carotid artery stenosis 50% bilaterally chest x-ray was EKG reviewed as above Blood work has been reviewed no clinical significant abnormalities Patients dizziness improved without any sort of intervention. He ambulated without any difficulty around the emergency department. He does have some carotid stenosis but this seems stable from previous CT a in December. NIH stroke scale of 1 with persistent left facial droop no new deficits today except for dizziness. I think unlikely to be a posterior stroke sent symptoms resolved so quickly. At this time recommend supportive care outpatient follow-up. Discharge Plan Departure Patient Disposition: Home Clinical Impression: Dizziness Instructions: DI for Dizziness-Nonvertigo Activity Restrictions/Additional Instructions: *You have been diagnosed with dizziness *What to do: At this time unclear what caused her dizziness. You do have carotid arteries that are 50% stenosed on both sides. Please follow up with your primary care provider. I think that this is on likely causing your symptoms today but needs to be followed. *Continue to take medications as directed *Follow up with your primary care provider in 2-3 days or call [phone] *Return to ER if you should have increasing dizziness falls confusion chest or any new, worsening or concerning symptoms Prescriptions: No Action rosuvastatin 20 mg tablet 20 mg PO DAILY Qty: 90 3RF carvedilol 25 mg tablet 25 mg PO BID Qty: 180 3RF Rx Instructions: must administer with a meal/food minoxidil 10 mg tablet 10 mg PO DAILY Qty: 90 3RF clopidogrel 75 mg tablet 75 mg PO DAILY Qty: 90 3RF aspirin 81 mg capsule 81 mg PO DAILY Referrals: Valente Puente MD [Primary Care Provider] - Stand Alone Forms: Patient Portal/API
[2023-08-10] MEDS: MECLIZINE HCL 12.5 MG TABLET 25 MG PO (11:03)
--- NOTE | 2023-08-10 11:09 | PC.NURSE ---
Chronic left sided facial droop. Hx of stroke x2.
--- NOTE | 2023-08-10 11:12 | PC.NURSE ---
Pt came to the emergency dept today because he started to feel dizzy and weak around 0900 this morning. Pt reports that he has hx of stroke x2 and takes plavix. Left sided facial droop noted, but states that is normal for pt. Pt states that he is feeling very dizzy and weak. Denies pain. Answers all questions appropriately. A&Ox3. GCS 15. VS WNL
[2023-08-10 11:25] LABS: COVID19 -Nasal RAPID Negative (Negative)
[2023-08-10 11:34] LABS: Ur Creatinine Normal (Normal); Ur Specific Gravity Normal (Normal); Urine pH Normal (Normal)
[2023-08-10 11:35] LABS: UR Morphine/Opiate cutoff 300 Negative (Negative); Urine Amphetamines Negative (Negative); Urine Barbiturates Negative (Negative); Urine Benzodiazepines Negative (Negative); Urine Cocaine Negative (Negative); Urine MDMA Negative (Negative); Urine Methadone Negative (Negative); Urine Methamphetamines Negative (Negative); Urine Oxycodone Negative (Negative); Urine Phencyclidine Negative (Negative); Urine Tetrahydrocannabinol Negative (Negative); Urine Tricyclic Antidepressant Negative (Negative)
== END 2023-08-10 12:03 | disposition home or self-care (01) ==
PROVIDERS: Emergency Provider Emergency Medicine; Family Provider Internal Medicine; PCP Internal Medicine
DX: R42 Dizziness and giddiness (principal); R07.9 Chest pain, unspecified; R29.810 Facial weakness; Z79.01 Long term (current) use of anticoagulants; R29.701 NIHSS score 1; Z20.822 Contact with and (suspected) exposure to COVID-19
CPT/HCPCS: 36415; 70450; 70496; 70498; 71045; 80053; 80305; 80320; 81003; 82550; 82962; 83690; 84484; 85025; 85610; 85730; 87635; 93005; 93010; 99285; Q9967

== ENCOUNTER → 2023-12-04 07:34 | Outpatient (CLI) | payer MEDICARE, OTHER, SELFPAY ==
[2022-12-12 16:26] VITALS: BMI 23.7
--- NOTE | 2023-12-04 07:35 | DI.RAD.S_ITS ---
PROCEDURE: XR CHEST 2V INDICATIONS: Productive cough x6 weeks TECHNIQUE: 2 views of the chest were acquired. COMPARISON: [facility], CR, XR CHEST 1V, 08/10/2023, 10:25. FINDINGS: Surgical changes and devices: None. Lungs and pleura: Subtle bilateral interstitial infiltrates may potentially represent interstitial pneumonitis or mild pulmonary edema. No pleural effusions or pneumothorax. Mediastinum: Mediastinal contours are normal. Heart size is normal. Bones and chest wall: No suspicious bony abnormalities. Old T11 compression. Soft tissues appear unremarkable. IMPRESSION: Findings may potentially represent interstitial viral pneumonitis versus mild pulmonary edema. Dictated by: Derek Blandon M.D. on 12/04/2023 at 8:09 Approved by: Derek Blandon M.D. on 12/04/2023 at 8:10
== END ==
PROVIDERS: Family Provider Internal Medicine; PCP Internal Medicine; Referring Provider Physician Assistant Surgical; Visit Provider Physician Assistant Surgical
DX: R05.8 Other specified cough (principal)
CPT/HCPCS: 71046

== ENCOUNTER → 2023-12-04 07:39 | Outpatient (CLI) | payer MEDICARE, OTHER, SELFPAY ==
[2022-12-12 16:26] VITALS: BMI 23.7
[2023-12-04 08:50] LABS: Influenza A - CEPHEID Flu A NEGATIVE (NEGATIVE); Influenza B - CEPHEID Flu B NEGATIVE (NEGATIVE); Respiratory Syncytial Virus Negative (Negative)
[2023-12-04 08:51] LABS: COVID-19 CEPHEID 4-PLEX PCR POSITIVE (Negative)
== END ==
PROVIDERS: Family Provider Internal Medicine; PCP Internal Medicine; Referring Provider Physician Assistant Surgical; Visit Provider Physician Assistant Surgical
DX: R05.1 Acute cough (principal); J02.9 Acute pharyngitis, unspecified
CPT/HCPCS: 0241U; 71046; 87070

== ENCOUNTER → 2023-12-20 08:12 | Outpatient (CLI) | payer MEDICARE, OTHER, SELFPAY ==
[2022-12-12 16:26] VITALS: BMI 23.7
--- NOTE | 2023-12-20 08:14 | DI.RAD.S_ITS ---
PROCEDURE: XR CHEST 2V INDICATIONS: Cough and fatigue TECHNIQUE: 2 views of the chest were acquired. COMPARISON: [facility], CR, XR CHEST 2V, 12/04/2023, 7:47. FINDINGS: Surgical changes and devices: None. Lungs and pleura: Diffuse interstitial prominence involving the bilateral hemithoraces more pronounced in the bilateral mid and lower lung zones. No dense consolidation. Mild perihilar airway thickening. No substantial pleural effusion or pneumothorax. Mediastinum: Mediastinal contours are normal. Heart size is normal. Bones and chest wall: No suspicious bony abnormalities. Soft tissues appear unremarkable. IMPRESSION: Diffuse interstitial prominence and mild perihilar airway thickening may represent bronchitis secondary to an infectious or inflammatory process. No dense consolidations. Dictated by: Pop Drew M.D. on 12/20/2023 at 8:44 Approved by: Pop Drew M.D. on 12/20/2023 at 8:45
== END ==
LOC: RAD 08:14
PROVIDERS: Family Provider Internal Medicine; PCP Internal Medicine; Referring Provider Registered Nurse; Visit Provider Registered Nurse
DX: R05.9 Cough, unspecified (principal)
CPT/HCPCS: 71046

== ENCOUNTER → 2024-03-29 15:40 | Outpatient (CLI) | payer MEDICARE, OTHER, SELFPAY ==
[2022-12-12 16:26] VITALS: BMI 23.7
[2024-03-29 16:09] LABS: Hematocrit 52.1 % (41-53); Hemoglobin 17.3 g/dL (13.5-17.5); Mean Corpuscular HGB Conc 33.2 % (30-36); Mean Corpuscular Hemoglobin 29.7 PG (26-34); Mean Corpuscular Volume 89.5 fL (80-100); Platelet Count 278 X10^3/uL (150-400); Red Blood Cell Count 5.83 X10^6/uL (4.5-5.9)
[2024-03-29 16:18] LABS: Aspartate Aminotransferase 29 IU/L (17-59); BUN Creatinine Ratio 28.9 (6-22); Blood Urea Nitrogen 26 mg/dL (9-20); Carbon Dioxide 30 mmol/L (22-32); Chloride 103 mmol/L (98-107); Cholesterol 120 mg/dL (140-199); Estimated Glomerular Filt Rate > 60 mL/min (>60); Glucose 119 mg/dL (80-110); HDL Cholesterol 43 mg/dL (40-60); HEMOLYSIS < 15 (0-50); Hemoglobin A1C% w Est Avg Glu 5.7 % (4.0-6.0); LDL Cholesterol Calculated 63 mg/dL (<100); Potassium 4.6 mmol/L (3.4-5.1); Sodium 137 mmol/L (137-145); Triglycerides 71 mg/dL (35-150)
[2024-03-29 16:49] LABS: TSH w/ Reflex to FT4 4.49 uIU/mL (0.47-4.68)
== END ==
PROVIDERS: Family Provider Internal Medicine; PCP Internal Medicine; Referring Provider Internal Medicine; Visit Provider Internal Medicine
DX: R73.01 Impaired fasting glucose (principal); E78.2 Mixed hyperlipidemia; I67.9 Cerebrovascular disease, unspecified; R53.83 Other fatigue; I10 Essential (primary) hypertension; K21.9 Gastro-esophageal reflux disease without esophagitis; I65.23 Occlusion and stenosis of bilateral carotid arteries
CPT/HCPCS: 36415; 80048; 80061; 83036; 84443; 84450; 85027

== ENCOUNTER → 2024-04-16 10:34 | Outpatient (CLI) | payer MEDICARE, OTHER, SELFPAY ==
[2022-12-12 16:26] VITALS: BMI 23.7
--- NOTE | 2024-04-16 10:36 | DI.RAD.S_ITS ---
PROCEDURE: XR RIBS RT MIN 3V W CXR 1V INDICATIONS: Right-sided anterior rib pain TECHNIQUE: 2 views of the ribs were acquired, along with a single view chest. COMPARISON: [facility], , XR CHEST 2V, 12/20/2023, 8:17. FINDINGS: Surgical changes and devices: None. Bones and chest wall: No fractures or dislocations. No suspicious bony lesions. Overlying soft tissues appear unremarkable. Lungs and pleura: No pleural effusions or pneumothorax. Lungs appear clear. Mediastinum: Mediastinal contours appear normal. Heart size is normal. IMPRESSION: No displaced rib fracture or pneumothorax. Dictated by: Daniel Valdivia M.D. on 04/16/2024 at 13:08 Approved by: Daniel Valdivia M.D. on 04/16/2024 at 13:10
== END ==
PROVIDERS: Family Provider Internal Medicine; PCP Internal Medicine; Referring Provider Registered Nurse; Visit Provider Registered Nurse
DX: R07.81 Pleurodynia (principal)
CPT/HCPCS: 71101

== ENCOUNTER → 2024-05-10 12:09 | Outpatient (CLI) | payer MEDICARE, OTHER, SELFPAY ==
[2022-12-12 16:26] VITALS: BMI 23.7
--- NOTE | 2024-05-10 12:10 | DI.CT.S_ITS ---
PROCEDURE: CT HEAD/BRAIN WO CON INDICATIONS: falls, head injury TECHNIQUE: Noncontrast 4.5 mm thick angled axial sections acquired from the foramen magnum to the vertex, with coronal and sagittal reformats. For radiation dose reduction, the following was used: automated exposure control, adjustment of mA and/or kV according to patient size. COMPARISON: [facility] [place], CT, CT HEAD/BRAIN WO CON, 12/12/2022, 13:20. FINDINGS: CSF spaces: Basal cisterns are patent. No extra-axial fluid collections. Ventricles are normal in size and shape. Brain: No midline shift. No intracranial masses or hemorrhage. Muro-white matter interface is normal. Moderate cerebral and cerebellar volume loss with multifocal white matter chronic ischemic change noted. Atherosclerotic calcification noted associated with cavernous segments of both internal carotid arteries. Skull and face: Calvarium and visualized facial bones are intact, without suspicious lesions. Sinuses: Visualized sinuses and mastoids are clear. IMPRESSION: Atrophy and chronic ischemic change without acute hemorrhage or mass effect Old lacunar infarct noted in the right thalamus Approved by: David Corea M.D. on 05/10/2024 at 17:09
--- NOTE | 2024-05-10 12:10 | DI.US.S_ITS ---
PROCEDURE: US ABDOMEN COMPLETE INDICATIONS: abd pain TECHNIQUE: Real-time scanning was performed of the abdominal and retroperitoneal organs, with image documentation. COMPARISON: None. FINDINGS: Liver: Liver is normal in size. Coarsely echogenic liver parenchymal echotexture is seen. 7 x 8.1 x 7.1 cm hypoechoic and solid appearing lesion is noted in midline near diaphragm. No definite direct extension with the left lobe of liver is noted. Gallbladder: 2 stones are noted in dependent portion of gallbladder lumen measures up to 4.4 mm in size. No significant gallbladder wall thickening or pericholecystic fluid. No sonographic Parker's sign. Biliary ducts: Intrahepatic bile ducts are non-dilated. Extrahepatic bile duct caliber measures 4.4 mm. Normal is 6-7 mm or less in diameter, or 10 mm or less post-cholecystectomy. Pancreas: Not well seen due to overlying bowel gas. Spleen: Spleen is normal in size and homogeneous in echotexture. Kidneys: Kidneys are normal in size and echotexture. Right kidney measures 10.0 cm long; left kidney measures 10.8 cm long. No hydronephrosis or nephrolithiasis. No solid masses. Simple appearing 1 cm right renal cyst is seen. Aorta: Visualized aorta is normal in caliber at less than 3 cm. Iliacs: Proximal common iliac arteries are normal in caliber at less than 2.5 cm. IVC: Intrahepatic inferior vena cava is patent. Miscellaneous: No free abdominal fluid. IMPRESSION: 1. Coarsely echogenic liver parenchyma suggestive of hepatic steatosis versus other type of metabolic liver disease. Midline solid-appearing mass measures 7 x 8.1 x 7.1 cm, without definite connection to the adjacent left hepatic lobe. CT of abdomen and pelvis with contrast can be done for further evaluation of this area. 2. Cholelithiasis without sonographic evidence of acute cholecystitis. No biliary ductal dilatation. 3. Pancreas is not visualized due to overlying bowel gas. 4. Rest of the exam is unremarkable. Dictated by: Alex Cruz M.D. on 05/11/2024 at 8:41 Approved by: Alex Cruz M.D. on 05/11/2024 at 8:48
== END ==
PROVIDERS: Family Provider Internal Medicine; PCP Internal Medicine; Referring Provider Internal Medicine; Visit Provider Internal Medicine
DX: I65.23 Occlusion and stenosis of bilateral carotid arteries (principal); R41.82 Altered mental status, unspecified; R10.9 Unspecified abdominal pain; K80.20 Calculus of gallbladder without cholecystitis without obstruction; K76.9 Liver disease, unspecified; N28.1 Cyst of kidney, acquired; Z86.73 Personal history of transient ischemic attack (TIA), and cerebral infarction without residual deficits
CPT/HCPCS: 70450; 76700

== ENCOUNTER → 2024-05-18 09:20 | Outpatient (CLI) | payer MEDICARE, OTHER, SELFPAY ==
[2022-12-12 16:26] VITALS: BMI 23.7
[2024-05-18 09:54] LABS: Estimated Glomerular Filt Rate > 60 mL/min (>60)
--- NOTE | 2024-05-18 10:02 | DI.CT.S_ITS ---
PROCEDURE: CT ABDOMEN PELVIS W CON INDICATIONS: mass seen on liver on ultrasound TECHNIQUE: After the administration of intravenous contrast, axial sections acquired from the lung bases to the pubic symphysis. Coronal and sagittal reformats were performed. For radiation dose reduction, the following was used: automated exposure control, adjustment of mA and/or kV according to patient size. COMPARISON: [facility], CT, ABDOMEN WITH CONTRAST, 01/24/2014, 8:46. FINDINGS: Image quality: Diagnostic. Lower Chest: Small bilateral pleural effusions. Heart is normal in size. Severe coronary artery calcifications. Small hiatal hernia. ABDOMEN: Liver: Innumerable hepatic hypodensities measuring 1.5 centimeters or less. Gallbladder: No radiopaque gallstones or wall thickening. Biliary ducts: No biliary dilation. Pancreas: Large necrotic mass involving the body and tail of the pancreas measuring approximately 12.8 x 7.1 x 6.7 centimeters (TV by AP by cc). There is mild surrounding fat stranding. The mass abuts and partially encompasses the splenic artery. Spleen: Size is within normal limits. Adrenal Glands: No adrenal nodules. Kidneys and Ureters: No hydronephrosis. No solid mass. No complex renal cystic lesion which requires follow up. Stomach and Bowel: Normal colonic caliber, without significant wall thickening. Peritoneum: No abnormal intraperitoneal fluid. No free air. Ventral Wall: No significant ventral hernia. Abdominal Nodes: Few prominent upper retroperitoneal lymph nodes. Few prominent and mildly enlarged mesenteric lymph nodes, for example a 11 millimeter short axis lymph node in the left mid mesentery (2/67). Vessels: The splenic vein is not well seen and possibly compressed or thrombosed. Varices are noted within the left upper quadrant. Aorta and inferior vena cava are normal in size. Atherosclerotic vascular calcifications. 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 PELVIS: Pelvic Organs: Prostatomegaly. Bladder: No bladder wall thickening, accounting for underdistention. Pelvic Nodes: No enlarged lymph nodes. Miscellaneous: No inguinal hernias are seen. Bones: No aggressive osseous abnormality. Multilevel degenerative changes of the spine. Decreased osseous mineralization. IMPRESSION: 1. 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 This mass abuts and partially encompasses the splenic artery. 2. Innumerable small hepatic lesions measuring 1.5 centimeters or less, consistent with metastatic disease. 3. Prominent upper mediastinal and a mildly enlarged mesenteric lymph nodes are nonspecific, may be metastatic. Attention on follow-up. 4. 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 This is overall not significantly changed compared to 01/24/2014. 5. Small bilateral pleural effusions. 6. Please see above for additional findings. Dictated by: Inocente Bryant M.D. on 05/18/2024 at 10:22 Approved by: Inocente Bryant M.D. on 05/18/2024 at 10:31
== END ==
PROVIDERS: Radiology Diagnostic Radiology; Family Provider Internal Medicine; PCP Internal Medicine; Referring Provider Internal Medicine; Visit Provider Internal Medicine
DX: K76.9 Liver disease, unspecified (principal); C25.9 Malignant neoplasm of pancreas, unspecified; R59.0 Localized enlarged lymph nodes; J90 Pleural effusion, not elsewhere classified; I25.10 Atherosclerotic heart disease of native coronary artery without angina pectoris; K44.9 Diaphragmatic hernia without obstruction or gangrene; I70.0 Atherosclerosis of aorta; N40.0 Benign prostatic hyperplasia without lower urinary tract symptoms
CPT/HCPCS: 36415; 74177; 80053; 82565; 85027; 85610; 85730; 86301; Q9967

== ENCOUNTER → 2024-05-18 16:58 | Outpatient (CLI) | payer MEDICARE, OTHER, SELFPAY ==
[2022-12-12 16:26] VITALS: BMI 23.7
[2024-05-18 18:01] LABS: Hematocrit 47.6 % (41-53); Hemoglobin 15.6 g/dL (13.5-17.5); Mean Corpuscular HGB Conc 32.7 % (30-36); Mean Corpuscular Volume 88.5 fL (80-100); Platelet Count 257 X10^3/uL (150-400); Red Blood Cell Count 5.38 X10^6/uL (4.5-5.9); Red Cell Distribution Width 14.3 % (11.6-14.8); White Blood Cell Count 8.6 X10^3/uL (4.5-11.0)
[2024-05-18 18:15] LABS: INR 1.2 (0.9-1.3); Prothrombin Time 13.5 SECONDS (9.4-12.5)
[2024-05-18 18:17] LABS: PTT Partial Thromboplastin Tim 29 SECONDS (25.1-36.5)
[2024-05-18 18:26] LABS: Alanine Aminotransferase 22 IU/L (<50); Albumin 3.8 g/dL (3.5-5.0); Albumin Globulin Ratio 1.4 (1.0-2.8); Alkaline Phosphatase 79 U/L (38-126); Aspartate Aminotransferase 29 IU/L (17-59); BUN Creatinine Ratio 35.9 (6-22); Bilirubin Total 0.8 mg/dL (0.2-1.3); Blood Urea Nitrogen 23 mg/dL (9-20); Calcium 9.1 mg/dL (8.4-10.2); Carbon Dioxide 26 mmol/L (22-32); Chloride 101 mmol/L (98-107); Estimated Glomerular Filt Rate > 60 mL/min (>60); Globulin 2.7 g/dL (1.7-4.1); Glucose 126 mg/dL (80-110); HEMOLYSIS < 15 (0-50); Potassium 4.1 mmol/L (3.4-5.1); Sodium 135 mmol/L (137-145); Total Protein 6.5 g/dL (6.3-8.2)
[2024-05-19 13:37] LABS: Cancer (Carbohydrate) Ag 19-9 15964 U/mL (0-35)
== END ==
LOC: LAB 16:59
PROVIDERS: Family Provider Internal Medicine; PCP Internal Medicine; Referring Provider Internal Medicine; Visit Provider Internal Medicine
DX: C25.9 Malignant neoplasm of pancreas, unspecified (principal)
CPT/HCPCS: 36415; 80053; 85027; 85610; 85730; 86301